=== PATIENT | male | born 1955 | race Caucasian/White ===

== ENCOUNTER 2016-03-16 05:40 | Emergency (ER) | payer OTHER ==
[~2016-03-16 05:40] MED LIST: ABIL5TAB5 PO; ADVI200T PO; ALBU17IN2 INH; ASPI1TAB PO; CYCL10TA PO; CYMB1CAP4 PO; FLUO10CA8 PO; FOLI800T PO; HYDR-3713 PO; HYDR25TAB PO; K-TA10TA2 PO; LISI-538 PO; METF1000 PO; PRAV40TA2 PO; PRIL20CA9 PO; PROZ20CA11 PO; SYMB16INH INH; TRAZ150T14 PO; VITA200016 PO; VITMTA PO; vitamin D PO
[2016-03-16] MEDS ORDERED: ONDANSETRON 4MG/2ML VIAL (J2405) As Ordered ONE (06:06)
[2016-03-16] MEDS ORDERED: MORPHINE 4 MG/ML 1ML SYRINGE As Ordered ONE ×2 (06:06→06:51)
[2016-03-16 06:21] LABS: BASO % 0.6 % (0.0-1.0); EOS # 0.4 K/mm3 (0.0-0.50); LARGE UNSTAINED CELL # 0.2 K/mm3 (0.0-0.4); LARGE UNSTAINED CELL % 2.3 % (0.0-4.0); LYMPH # 1.7 K/mm3 (1.5-4.5); LYMPH % 22.1 % (24.0-44.0); MEAN CORPUSCULAR HEMOGLOBIN 30.1 pg (27.0-33.0); MEAN CORPUSCULAR HGB CONC 34.3 g/dl (32.0-36.5); MEAN CORPUSCULAR VOLUME 87.7 fl (80.0-96.0); MONO # 0.3 K/mm3 (0.0-0.8); MONO % 4.5 % (0.0-5.0); NEUTROPHILS % 65.5 % (36.0-66.0); PLATELET COUNT, AUTOMATED 200 k/mm3 (150-450); RED CELL DISTRIBUTION WIDTH 13.5 % (11.5-14.5); WHITE BLOOD COUNT 7.7 K/mm3 (4.0-10.0)
[2016-03-16 06:32] LABS: ALBUMIN 3.5 GM/DL (3.2-5.2); ALBUMIN/GLOBULIN RATIO 1.06 (1.00-1.93); ALKALINE PHOSPHATASE 85 U/L (45-117); ALT/SGPT 53 U/L (12-78); AMYLASE 39 U/L (25-115); ANION GAP 11 MEQ/L (8-16); AST/SGOT 33 U/L (15-37); BILIRUBIN,DIRECT < 0.1 MG/DL (0.0-0.2); BILIRUBIN,TOTAL 0.2 MG/DL (0.2-1.0); BLOOD UREA NITROGEN 17 MG/DL (7-18); CALCIUM LEVEL 8.5 MG/DL (8.5-10.1); CARBON DIOXIDE LEVEL 25 MEQ/L (21-32); CHLORIDE LEVEL 109 MEQ/L (98-107); CREATININE FOR GFR 0.91 MG/DL (0.70-1.30); GLOMERULAR FILTRATION RATE > 60.0 (>56); GLUCOSE, FASTING 167 MG/DL (70-105); POTASSIUM SERUM 3.7 MEQ/L (3.5-5.1); SODIUM LEVEL 145 MEQ/L (136-145); TOTAL PROTEIN 6.8 GM/DL (6.4-8.2)
[2016-03-16] MEDS ORDERED: ISOVUE-370 76% 100ML VIAL (Q9967) As Ordered ONE (06:39)
--- NOTE | 2016-03-16 07:20 | REPUSA ---
CLINICAL HISTORY: Abdominal pain. TECHNIQUE: Multiple axial, sagittal and coronal CT images were obtained through the abdomen and pelvi s after administration of intravenous contrast material. COMMENTS: The liver is moderately enlarged with decreased attenuation without mass or defect. There is no intra or extrahepatic biliary ductal dilatation. The spleen is normal. The gallbladder is diffusely thickened. The pancreas is of normal contour and attenuation characteristics. There is no evidence of adrenal mass. Adrenal mass. Both kidneys demonstrate prompt and equal nephrograms. The kidneys are normal in size, shape and conf iguration. There is no evidence of renal or ureteral mass. No renal or ureteral calculi are identified. There is no hydroureter or hydronephrosis. No evidence for appendicitis. There is no bowel wall thickening. No evidence for small or large ivis l obstruction. There is no evidence of abdominal ascites or lymphadenopathy. There is no evidence of intrinsic or extrinsic bladder mass. There is no pelvic ascites or lymphadeno crista. Mild prostatomegaly. Mildly thickened bladder. Images of the lung bases show no evidence of pleural or parenchymal mass. There are no pleural effusi ons. The bony structures are free of lytic or blastic lesions. Multilevel degenerative changes are seen in volving the thoracolumbar spine. Scattered calcifications are seen involving the aorta and major bran ches compatible with atherosclerosis. IMPRESSION: Diffuse thickening of the wall of the gallbladder suspicious for mild changes of acute cholecystitis. Findings were not present on the prior exam on 01/01/2016. Hepatomegaly with fatty liver infiltration. Gastroparesis. Mild large bowel fecal stasis. Thank you for your kind referral of this patient.
[2016-03-16 10:28] LABS: BASO % 0.5 % (0.0-1.0); EOS # 0.2 K/mm3 (0.0-0.50); EOS % 2.2 % (0.0-3.0); LARGE UNSTAINED CELL # 0.1 K/mm3 (0.0-0.4); LARGE UNSTAINED CELL % 1.6 % (0.0-4.0); LYMPH # 1.3 K/mm3 (1.5-4.5); LYMPH % 15.9 % (24.0-44.0); MEAN CORPUSCULAR HEMOGLOBIN 29.7 pg (27.0-33.0); MEAN CORPUSCULAR HGB CONC 33.9 g/dl (32.0-36.5); MEAN CORPUSCULAR VOLUME 87.6 fl (80.0-96.0); MONO # 0.4 K/mm3 (0.0-0.8); MONO % 5.1 % (0.0-5.0); NEUTROPHILS % 74.6 % (36.0-66.0); PLATELET COUNT, AUTOMATED 172 k/mm3 (150-450); RED CELL DISTRIBUTION WIDTH 13.6 % (11.5-14.5)
--- NOTE | 2016-03-16 10:55 | ECGEPIP ---
Stationary ECG Study [facility] - ED Test Date: 2016-03-16 Pat Name: LOBITO FORMAN Department: Room: - Gender: M [employer] Truck Driver: micaela : 1955 Requested By: DREA Abreu Order Number: [id number] Reading MD: Rosie Flores Measurements Intervals [place] Rate: 69 P: 0 MO: 183 QRS: -21 QRSD: 109 T: 25 QT: 348 QTc: 375 Interpretive Statements SINUS RHYTHM BORDERLINE LEFT AXIS DEVIATION LOW QRS VOLTAGE IN PRECORDIAL LEADS NONSPECIFIC T-WAVE ABNORMALITY DELAYED R PROGESSION SIMILAR 01/01/16 Electronically Signed On 03-16-2016 10:55:10 EST by Rosie Flores
--- NOTE | 2016-03-16 11:04 | REP ---
Abdominal upper quadrant ultrasound: The visualized portion of the pancreatic head is unremarkable. There is biliary gravel in the gallbladder neck. There is a negative Preciado's sign to transducer pressure. There is minimal gallbladder wall thickening measuring 3 mm. There is no intrahepatic biliary duct dilatation. The common duct measures 7 mm, upper normal. The hepatic parenchyma is acoustically dense compatible with hepato steatosis or diffuse hepatic cellular disease. There is no ascites. There is no hydronephrosis of the right kidney and no calculus, cyst or mass in the right kidney. Right kidney is normal size, 11.1 cm craniocaudad length. Impression: Biliary gravel in the gallbladder. No evidence of acute cholecystitis. No biliary duct dilatation. No ascites. Hepato steatosis. Signed by Ubaldo Christine MD 03/16/2016 08:39 A
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
[2016-03-17] MEDS ORDERED: TERA1CAP46 PO (00:06)
[2016-03-17] MEDS ORDERED: FINA5TAB2 PO (00:06)
[2016-03-17] MEDS ORDERED: PRAV40TA2 PO (00:06)
[2016-03-17] MEDS ORDERED: BACL10TA2 PO (00:09)
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
== END 2016-03-16 11:07 | disposition home or self-care (01) ==
LOC: M ED 05:40
DX: K31.84 Gastroparesis (principal); K80.20 Calculus of gallbladder without cholecystitis without obstruction; K59.00 Constipation, unspecified; J45.909 Unspecified asthma, uncomplicated; J44.9 Chronic obstructive pulmonary disease, unspecified; E11.9 Type 2 diabetes mellitus without complications; I10 Essential (primary) hypertension; G47.33 Obstructive sleep apnea (adult) (pediatric); Z87.891 Personal history of nicotine dependence; Z79.82 Long term (current) use of aspirin; Z79.84 Long term (current) use of oral hypoglycemic drugs; Z79.899 Other long term (current) drug therapy

== ENCOUNTER 2016-03-16 20:04 | Observation (INO) | payer OTHER ==
[~2016-03-16] VITALS: Ht 172.7 cm; Wt 134.7 kg
[2016-03-16 20:55] LABS: BASO % 0.4 % (0.0-1.0); EOS # 0.2 K/mm3 (0.0-0.50); EOS % 1.7 % (0.0-3.0); LARGE UNSTAINED CELL # 0.1 K/mm3 (0.0-0.4); LARGE UNSTAINED CELL % 0.7 % (0.0-4.0); LYMPH # 1.5 K/mm3 (1.5-4.5); LYMPH % 11.4 % (24.0-44.0); MEAN CORPUSCULAR HEMOGLOBIN 30.1 pg (27.0-33.0); MEAN CORPUSCULAR HGB CONC 34.6 g/dl (32.0-36.5); MEAN CORPUSCULAR VOLUME 86.9 fl (80.0-96.0); MONO # 0.7 K/mm3 (0.0-0.8); MONO % 6.1 % (0.0-5.0); NEUTROPHILS # 9.7 K/mm3 (1.8-7.7); NEUTROPHILS % 79.7 % (36.0-66.0); PLATELET COUNT, AUTOMATED 185 k/mm3 (150-450); RED CELL DISTRIBUTION WIDTH 13.6 % (11.5-14.5); WHITE BLOOD COUNT 12.2 K/mm3 (4.0-10.0)
[2016-03-16] MEDS ORDERED: traZODone 50 MG TAB PO SCH (21:00)
[2016-03-16 21:35] LABS: ALBUMIN 3.7 GM/DL (3.2-5.2); ALBUMIN/GLOBULIN RATIO 1.16 (1.00-1.93); ALKALINE PHOSPHATASE 61 U/L (45-117); ALT/SGPT 58 U/L (12-78); AMYLASE 35 U/L (25-115); ANION GAP 10 MEQ/L (8-16); AST/SGOT 32 U/L (15-37); BILIRUBIN,DIRECT 0.1 MG/DL (0.0-0.2); BILIRUBIN,TOTAL 0.5 MG/DL (0.2-1.0); BLOOD UREA NITROGEN 13 MG/DL (7-18); CALCIUM LEVEL 8.6 MG/DL (8.5-10.1); CARBON DIOXIDE LEVEL 27 MEQ/L (21-32); CHLORIDE LEVEL 106 MEQ/L (98-107); CREATININE FOR GFR 0.91 MG/DL (0.70-1.30); GLOMERULAR FILTRATION RATE > 60.0 (>56); GLUCOSE, FASTING 137 MG/DL (70-105); POTASSIUM SERUM 4.1 MEQ/L (3.5-5.1); SODIUM LEVEL 143 MEQ/L (136-145); TOTAL PROTEIN 6.9 GM/DL (6.4-8.2)
--- NOTE | 2016-03-16 22:30 | REPUSA ---
CT of the abdomen and pelvis without contrast Clinical statement: Pain. Technique: Multiple axial CT images were obtained from the base of the lungs to the floor of the pelv is utilizing 5 mm axial slices without administration of contrast. Coronal and sagittal reconstructio ns were also obtained. Comparison: 03/16/2016. Findings: Chest: The visualized lung bases are clear. Abdomen: The pericholecystic inflammation or gallbladder wall thickening is again noted and is grossl y stable. The kidneys are normal in size bilaterally. There is no evidence of hydronephrosis or nephr olithiasis. The liver, spleen, pancreas, and adrenal glands are unremarkable. The aorta demonstrates normal caliber and contour. There is no abdominal lymphadenopathy or ascites. Pelvis: The bowel is unremarkable, with no obstructive or inflammatory changes. The appendix is raffi l. The urinary bladder is within normal limits. There is no pelvic lymphadenopathy or ascites. The ot her pelvic structures appear unremarkable. Bones: There are no suspicious osseous abnormalities seen. Impression: 1. Pericholecystic inflammation or gallbladder wall thickening is again appreciated, highly suspiciou s for acute cholecystitis. 2. The other CT findings are grossly stable.
[2016-03-17] MEDS ORDERED: TERA1CAP46 PO (00:06)
[2016-03-17] MEDS ORDERED: PRAV40TA2 PO (00:06)
[2016-03-17] MEDS ORDERED: FINA5TAB2 PO (00:06)
[2016-03-17] MEDS ORDERED: BACL10TA2 PO (00:09)
[2016-03-17] MEDS ORDERED: MORPHINE 2 MG/ML 1ML SYRINGE As Ordered ONE (00:39)
[2016-03-17 01:20] VITALS: BP 191/89
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
[2016-03-17] MEDS ORDERED: ONDANSETRON 4MG/2ML VIAL (J2405) IV PRN (02:15)
[2016-03-17] MEDS ORDERED: MORPHINE 2 MG/ML 1ML SYRINGE IV PRN (02:15)
[2016-03-17] MEDS ORDERED: LR 1,000 ML IV SCH (02:15)
[2016-03-17] MEDS: PIPERACILLIN/TAZOBACTAM SOD 3.375 GM in D5W MINI-BAG PLUS 50 ML IV SCH ×2 (02:54→08:00)
[2016-03-17 05:44] VITALS: BP 154/80
[2016-03-17 06:00] VITALS: BP 154/72
[2016-03-17] MEDS: SUCRALFATE 1 GM TAB PO SCH ×2 (07:30→12:21)
[2016-03-17] MEDS ORDERED: metFORMIN (GLUCOPHAGE) 1000 MG TABLET PO SCH (08:00)
[2016-03-17] MEDS ORDERED: ASPIRIN 81 MG ENTERIC TAB PO SCH (09:00)
[2016-03-17] MEDS ORDERED: SENOKOT S TAB PO SCH (09:00)
[2016-03-17] MEDS ORDERED: FLUoxetine 20 MG CAP PO SCH (09:00)
[2016-03-17] MEDS ORDERED: BISACODYL 10 MG SUPP PR PRN (09:00)
[2016-03-17] MEDS ORDERED: PRAVASTATIN 20 MG TAB PO SCH (09:00)
[2016-03-17] MEDS ORDERED: MOM 30ML SUSPENSION UDC PO PRN (09:00)
[2016-03-17] MEDS ORDERED: SYMBICORT 160/4.5MCG INHALER 6GM INH SCH (09:00)
[2016-03-17] MEDS ORDERED: POTASSIUM CHLORIDE 10 MEQ SR TABLET PO SCH (09:00)
[2016-03-17] MEDS ORDERED: KETOROLAC 30 MG/ML VIAL (J1885) IV PRN (09:00)
[2016-03-17] MEDS ORDERED: LISINOPRIL 20 MG TAB PO SCH (09:00)
[2016-03-17] MEDS ORDERED: ACETAMINOPHEN TAB 650MG DOSE (2X325MG) PO PRN (09:00)
[2016-03-17] MEDS ORDERED: hydroCHLOROthiazide 25 MG TAB PO SCH (09:00)
[2016-03-17] MEDS ORDERED: FINASTERIDE 5 MG TAB PO SCH (09:00)
[2016-03-17] MEDS ORDERED: BACLOFEN 10 MG TAB PO SCH (09:00)
[2016-03-17] MEDS ORDERED: PANTOPRAZOLE 40MG TAB (PROTONIX) PO SCH (09:00)
[2016-03-17] MEDS ORDERED: TERAZOSIN 1 MG CAP PO SCH (09:00)
[2016-03-17 09:02] VITALS: BP 154/72
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
[2016-03-17 14:00] VITALS: BP 150/75
[2016-03-17] MEDS ORDERED: HEPARIN SOD (PORCINE) 5000 UNITS/ML VIAL SC SCH (14:00)
[2016-03-18] MEDS ORDERED: INFLUENZA QUADRIVALENT PF VACCINE 0.5ML SYRINGE/VIAL (90686) IM ONE (09:00)
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
== END 2016-03-17 14:40 | disposition home or self-care (01) ==
LOC: M ED 20:04 → M MS5PR 20:05 → UNDOADMIN 23:00 → M ED INP 23:00 → M MS5PR 03-17 01:20 → UNDODISIN 03-17 14:40
PROVIDERS: ADMIT Surgery; ATTEND Surgery
DX: R10.11 Right upper quadrant pain (principal); I10 Essential (primary) hypertension; J45.909 Unspecified asthma, uncomplicated; J44.9 Chronic obstructive pulmonary disease, unspecified; E11.9 Type 2 diabetes mellitus without complications; G47.30 Sleep apnea, unspecified; E55.9 Vitamin D deficiency, unspecified; M54.5 Low back pain; Z79.899 Other long term (current) drug therapy; Z79.82 Long term (current) use of aspirin; Z79.84 Long term (current) use of oral hypoglycemic drugs; Z79.51 Long term (current) use of inhaled steroids; Z87.891 Personal history of nicotine dependence

== ENCOUNTER 2017-06-06 16:40 | Emergency (ER) | payer OTHER ==
[2017-06-06 17:42] LABS: BASO # 0.1 10^3/uL (0.0-0.2); BASO % 0.5 % (0.0-1.0); EOS # 0.3 10^3/uL (0.0-0.50); EOS % 3.6 % (0.0-3.0); HEMATOCRIT 42.3 % (42.0-52.0); HEMOGLOBIN 14.4 g/dl (13.5-17.5); IMMATURE GRANULOCYTE % 0.3 % (0-3.0); LYMPH # 2.1 10^3/uL (1.5-4.5); LYMPH % 22.6 % (24.0-44.0); MEAN CORPUSCULAR VOLUME 85.3 fl (80.0-96.0); MONO # 0.6 10^3/uL (0.0-0.8); MONO % 5.9 % (0.0-5.0); NEUTROPHILS # 6.3 10^3/uL (1.8-7.7); NEUTROPHILS % 67.1 % (36.0-66.0); PLATELET COUNT, AUTOMATED 191 10^3/uL (150-450); RED BLOOD COUNT 4.96 10^6/uL (4.30-6.10); RED CELL DISTRIBUTION WIDTH 13.5 % (11.5-14.5); WHITE BLOOD COUNT 9.3 10^3/uL (4.0-10.0)
[2017-06-06 18:03] LABS: ALBUMIN/GLOBULIN RATIO 1.05 (1.00-1.93); ALKALINE PHOSPHATASE 68 U/L (45-117); ALT/SGPT 25 U/L (12-78); ANION GAP 8 MEQ/L (8-16); AST/SGOT 19 U/L (7-37); BILIRUBIN,DIRECT 0.2 MG/DL (0.0-0.2); BILIRUBIN,TOTAL 0.6 MG/DL (0.2-1.0); BLOOD UREA NITROGEN 30 MG/DL (7-18); CALCIUM LEVEL 9.3 MG/DL (8.8-10.2); CARBON DIOXIDE LEVEL 27 MEQ/L (21-32); CHLORIDE LEVEL 106 MEQ/L (98-107); GLOMERULAR FILTRATION RATE > 60.0 (>49); GLUCOSE, FASTING 156 MG/DL (70-100); LIPASE 103 U/L (73-393); POTASSIUM SERUM 3.7 MEQ/L (3.5-5.1); SODIUM LEVEL 141 MEQ/L (136-145); TOTAL PROTEIN 7.8 GM/DL (6.4-8.2)
[2017-06-06] MEDS ORDERED: NORCO 5/325MG TABLET (BULK FOR ED) PO (18:15)
== END 2017-06-06 18:59 | disposition home or self-care (01) ==
LOC: M ED 16:40
DX: K80.50 Calculus of bile duct without cholangitis or cholecystitis without obstruction (principal); E11.9 Type 2 diabetes mellitus without complications; I10 Essential (primary) hypertension; J44.9 Chronic obstructive pulmonary disease, unspecified; E55.9 Vitamin D deficiency, unspecified; G47.33 Obstructive sleep apnea (adult) (pediatric); Z87.19 Personal history of other diseases of the digestive system; Z79.899 Other long term (current) drug therapy; Z79.84 Long term (current) use of oral hypoglycemic drugs; Z79.82 Long term (current) use of aspirin; Z87.891 Personal history of nicotine dependence
CPT/HCPCS: 83690

== ENCOUNTER 2017-06-29 19:02 | Emergency (ER) | payer OTHER ==
[2017-06-29] MEDS: diazePAM 2 MG TAB PO (20:33)
[2017-06-29] MEDS: KETOROLAC 30 MG/ML VIAL (J1885) IV (20:33)
[2017-06-29 21:04] LABS: ANION GAP 6 MEQ/L (8-16); BLOOD UREA NITROGEN 17 MG/DL (7-18); CALCIUM LEVEL 8.6 MG/DL (8.8-10.2); CARBON DIOXIDE LEVEL 28 MEQ/L (21-32); CHLORIDE LEVEL 110 MEQ/L (98-107); CREATININE FOR GFR 0.87 MG/DL (0.70-1.30); GLOMERULAR FILTRATION RATE > 60.0 (>49); GLUCOSE, FASTING 89 MG/DL (70-100); POTASSIUM SERUM 4.2 MEQ/L (3.5-5.1); SODIUM LEVEL 144 MEQ/L (136-145)
[2017-06-29] MEDS: PERCOCET 5MG/325MG TAB PO (21:45)
== END 2017-06-29 21:50 | disposition home or self-care (01) ==
LOC: M ED 19:02
DX: M54.9 Dorsalgia, unspecified (principal); M51.36 Other intervertebral disc degeneration, lumbar region; M51.37 Other intervertebral disc degeneration, lumbosacral region; M51.34 Other intervertebral disc degeneration, thoracic region; M25.78 Osteophyte, vertebrae; E11.9 Type 2 diabetes mellitus without complications; I10 Essential (primary) hypertension; F32.9 Major depressive disorder, single episode, unspecified; J45.909 Unspecified asthma, uncomplicated; J44.9 Chronic obstructive pulmonary disease, unspecified; G47.30 Sleep apnea, unspecified; R06.00 Dyspnea, unspecified; Z87.891 Personal history of nicotine dependence
CPT/HCPCS: J1885

== ENCOUNTER 2017-10-26 20:23 | Emergency (ER) | payer OTHER ==
[2017-10-26] MEDS: ACETAMINOPHEN 325 MG TAB PO (21:10)
== END 2017-10-26 22:55 | disposition home or self-care (01) ==
LOC: M ED 20:23
DX: M17.11 Unilateral primary osteoarthritis, right knee (principal); M76.51 Patellar tendinitis, right knee; E11.9 Type 2 diabetes mellitus without complications; I10 Essential (primary) hypertension; J44.9 Chronic obstructive pulmonary disease, unspecified; E78.5 Hyperlipidemia, unspecified; Z79.899 Other long term (current) drug therapy; Z79.82 Long term (current) use of aspirin; Z79.84 Long term (current) use of oral hypoglycemic drugs; Z87.891 Personal history of nicotine dependence
CPT/HCPCS: 73564

== ENCOUNTER 2020-07-02 19:23 | Inpatient (IN) | payer MEDICARE, OTHER ==
[~2020-07-02] VITALS: Ht 172.7 cm; Wt 105.0 kg
[~2020-07-02 19:23] MED LIST changes: +ABIL1TAB11 PO; -ABIL5TAB5 PO; +ACET650T61 PO; +ALPR0.5T3 PO; +ARIP1TAB6; -ASPI1TAB PO; +ASPI81TA26 PO; +BACL10TA2 PO; +CAPS0.022 TOP; +CIPR-249 PO; +CYCL-707 PO; -CYCL10TA PO; +DOXE10CA; +FINA5TAB2 PO; +FLAG500T PO; +FLUO10CA16 PO; -FLUO10CA8 PO; +FOLI0.8T3 PO; -FOLI800T PO; +HYDR-2541 PO; +HYDR-3490 PO; -HYDR25TAB PO; -LISI-538 PO; +LISI20TA33 PO; +METF-877 PO; -METF1000 PO; +METF10004 PO; +NAPR-885 PO; +PERC5TAB12 PO; +TERA1CAP3 PO; -TRAZ150T14 PO; +TRAZ1TAB14 PO
[2020-07-02] MEDS ORDERED: BACL10TA2 PO (19:49)
[2020-07-02] MEDS ORDERED: FURO20TA2 PO (19:49)
[2020-07-02 20:27] LABS: HEMATOCRIT 40.8 % (42.0-52.0); HEMOGLOBIN 13.7 g/dl (13.5-17.5); MEAN CORPUSCULAR HEMOGLOBIN 30.8 pg (27.0-33.0); MEAN CORPUSCULAR HGB CONC 33.6 g/dl (32.0-36.5); MEAN CORPUSCULAR VOLUME 91.7 fl (80.0-96.0); PLATELET COUNT, AUTOMATED 165 10^3/uL (150-450); RED BLOOD COUNT 4.45 10^6/uL (4.30-6.10); WHITE BLOOD COUNT 8.6 10^3/uL (4.0-10.0)
[2020-07-02 20:48] LABS: AMPHETAMINES LEVEL URINE NEGATIVE (NEGATIVE); BARBITURATES URINE NEGATIVE (NEGATIVE); BENZODIAZEPINES URINE NEGATIVE (NEGATIVE); CANNABINOIDS URINE NEGATIVE (NEGATIVE); COCAINE METABOLITE URINE NEGATIVE (NEGATIVE); METHADONE URINE NEGATIVE (NEGATIVE); OPIATES URINE NEGATIVE (NEGATIVE); PHENCYCLIDINE URINE NEGATIVE (NEGATIVE)
[2020-07-02] MEDS: HumaLOG INSULIN (NovoLOG) PER UNIT SC SCH (21:00)
[2020-07-02 21:03] LABS: ACETAMINOPHEN LEVEL < 2.0 UG/ML (10.0-30.0); ALBUMIN 3.9 GM/DL (3.2-5.2); ALT/SGPT 24 U/L (12-78); BILIRUBIN,DIRECT 0.2 MG/DL (0.0-0.2); BILIRUBIN,TOTAL 0.8 MG/DL (0.2-1.0); BLOOD UREA NITROGEN 33 MG/DL (7-18); CALCIUM LEVEL 8.6 MG/DL (8.8-10.2); CARBON DIOXIDE LEVEL 24 MEQ/L (21-32); CHLORIDE LEVEL 111 MEQ/L (98-107); CREATININE FOR GFR 1.74 MG/DL (0.70-1.30); ETHYL ALCOHOL (ETHANOL) < 0.003 % (0.000-0.010); GLOMERULAR FILTRATION RATE 42.4 (>49); GLUCOSE, FASTING 104 MG/DL (70-100); SALICYLATE LEVEL < 1.7 MG/DL (5.0-30.0); SODIUM LEVEL 142 MEQ/L (136-145); THYROID STIMULATING HORMONE 0.922 uIU/ML (0.358-3.740); TOTAL PROTEIN 6.7 GM/DL (6.4-8.2)
[2020-07-02] MEDS ORDERED: DEXTROSE 50% 50 ML SYRINGE IV PRN (21:30)
[2020-07-02] MEDS ORDERED: MAALOX 30 ML SUSP *UDC PO PRN (21:30)
[2020-07-02] MEDS ORDERED: MOM 30ML SUSPENSION UDC PO PRN (21:30)
[2020-07-02] MEDS ORDERED: GLUCOSE 4GM CHEW TABLET PO PRN (21:30)
[2020-07-02] MEDS ORDERED: GLUCAGON INJ 1MG VIAL SC PRN (21:30)
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
[2020-07-02] MEDS ORDERED: NS 1,000 ML IV SCH (21:35)
[2020-07-02 21:50] LABS: CPK CREATINE PHOSPHOKINASE 258 U/L (39-308); URIC ACID 8.6 MG/DL (3.5-7.2)
[2020-07-02 22:00] LABS: APPEARANCE, URINE CLEAR (CLEAR); BACTERIA, URINE AUTO NEGATIVE (NEGATIVE); BILIRUBIN, URINE AUTO NEGATIVE (NEGATIVE); BLOOD, URINE BLOOD NEGATIVE (NEGATIVE); COLOR, URINE YELLOW (YELLOW); GLUCOSE, URINE (UA) AUTO NEGATIVE (NEGATIVE); KETONE, URINE AUTO NEGATIVE (NEGATIVE); LEUKOCYTE ESTERASE, URINE AUTO NEGATIVE (NEGATIVE); MUCUS, URINE SMALL (NEGATIVE); NITRITE, URINE AUTO NEGATIVE (NEGATIVE); PROTEIN, URINE AUTO NEGATIVE (NEGATIVE); RBC, URINE AUTO 0 /HPF (0-3); SPECIFIC GRAVITY URINE AUTO 1.014 (1.002-1.035); SQUAMOUS EPITHELIAL CELL UR AU 0 /HPF (0-6); UROBILINOGEN, URINE AUTO 0.2 mg/dL (0.0-2.0); WBC, URINE AUTO 1 /HPF (0-3)
[2020-07-02] MEDS ORDERED: POTA1TAB14 PO (22:06)
[2020-07-02] MEDS ORDERED: PRAV80TA2 PO (22:06)
[2020-07-02 22:12] LABS: POTASSIUM RANDOM URINE 29.7 MEQ/L
[2020-07-02] MEDS: NS 1,000 ML IV SCH (22:32)
[2020-07-02 23:17] LABS: RSV AMPLIFICATION NEGATIVE (NEGATIVE)
--- NOTE | 2020-07-02 23:26 | REPVR ---
PROCEDURE INFORMATION: Exam: US Retroperitoneal Limited, Kidneys Exam date and time: 07/02/2020 10:08 PM Age: 65 years old Clinical indication: Other: Malcolm TECHNIQUE: Imaging protocol: Real-time ultrasound of the retroperitoneum with image documentation. Examination was focused on the kidneys. COMPARISON: CT ABD PELVIS W/O CONTRAST 03/16/2016 10:06 PM FINDINGS: Right kidney: The right kidney measures 11.8 cm in length by 5.5 cm in thickness. The renal cortex measures 1.7 cm in thickness and appearing within the range of normal. Left kidney: The left kidney measures 12.5 cm in length by 5.9 cm in thickness. The left renal cortex measures 1.8 cm in thickness there is no evidence of hydronephrosis of the left kidney. There is no evidence of hydronephrosis left collecting system. Mild prominence left renal pelvis. Bladder: Normal appearing urinary bladder. Other findings: There is no evidence of hydronephrosis. The prostate measures 4.4 cm x 4.7 cm mildly enlarged. IMPRESSION: Normal appearing renal ultrasound. Electronically signed by: Doni Negrno On 07/02/2020 23:26:05 PM
[2020-07-03 00:22] VITALS: BP 138/77
[2020-07-03] MEDS: NS 1,000 ML IV SCH ×2 (00:40→18:17)
[2020-07-03] MEDS: BACLOFEN 10 MG TAB PO SCH ×4 (00:42→21:11)
[2020-07-03] MEDS: PRAVASTATIN 20 MG TAB PO SCH ×2 (00:42→21:11)
[2020-07-03] MEDS: traZODone 50 MG TAB PO SCH ×2 (00:42→21:10)
[2020-07-03] MEDS: POTASSIUM CHLORIDE 10 MEQ SR TABLET PO SCH ×3 (00:43→21:11)
[2020-07-03] MEDS: ACETAMINOPHEN TAB 650MG DOSE (2X325MG) PO PRN ×2 (00:43→21:12)
[2020-07-03] MEDS: HEPARIN SOD (PORCINE) 5000UNITS/ML 1ML VIAL/SYRINGE SC SCH ×3 (05:14→21:11)
[2020-07-03 05:48] VITALS: BP 122/70
[2020-07-03 07:00] LABS: HEMATOCRIT 37.6 % (42.0-52.0); HEMOGLOBIN 12.4 g/dl (13.5-17.5); MEAN CORPUSCULAR HEMOGLOBIN 30.4 pg (27.0-33.0); MEAN CORPUSCULAR VOLUME 92.2 fl (80.0-96.0); PLATELET COUNT, AUTOMATED 143 10^3/uL (150-450); RED BLOOD COUNT 4.08 10^6/uL (4.30-6.10); WHITE BLOOD COUNT 6.6 10^3/uL (4.0-10.0)
[2020-07-03 07:18] LABS: HEMOGLOBIN A1c 5.3 %
[2020-07-03 07:19] LABS: BLOOD UREA NITROGEN 25 MG/DL (7-18); CALCIUM LEVEL 8.1 MG/DL (8.8-10.2); CARBON DIOXIDE LEVEL 23 MEQ/L (21-32); CHLORIDE LEVEL 114 MEQ/L (98-107); CREATININE FOR GFR 1.11 MG/DL (0.70-1.30); GLOMERULAR FILTRATION RATE > 60.0 (>49); GLUCOSE, FASTING 85 MG/DL (70-100); POTASSIUM SERUM 4.1 MEQ/L (3.5-5.1); SODIUM LEVEL 141 MEQ/L (136-145)
[2020-07-03] MEDS: HumaLOG INSULIN (NovoLOG) PER UNIT SC SCH ×4 (07:30→21:00)
[2020-07-03] MEDS: SYMBICORT 160/4.5MCG INHALER 6GM INH SCH ×3 (07:35→20:06)
[2020-07-03] MEDS: FLUoxetine 20 MG CAP PO SCH (09:25)
[2020-07-03] MEDS: ASPIRIN 81MG ENTERIC TABLET PO SCH (09:26)
--- NOTE | 2020-07-03 09:49 | IPNPDOC ---
Text Note Date of Service The patient was seen on 07/03/20. NOTE Subjective: Patient is a 65-year-old male who presented to the emergency room after reporting suicidal ideation. He reported that he wanted to jump off a bridge and instead he called the police who brought him to the emergency room. Upon arrival to emergency room, patient's lab work had revealed an elevation of his creatinine from baseline and he was admitted to hospital service for further evaluation and treatment. Patient was seen and examined at the bedside. Patient denies any chest pain, shortness breath, palpitations, nausea, vomiting, abdominal pain or diarrhea. Denies any urinary discomfort. Objective: Vitals (See below) General: Lying in bed, no acute distress, comfortable, AAOx3 HEENT: NC, AT CVS: +S1S2 Lungs: Fair air entry b/l, -w/r/r Abdomen: Soft, ND, NT Extremities: - Edema, - Calf tenderness Imaging: Renal US 07/02: Normal appearing renal ultrasound. Assessment and plan: s/p MONIK - likely 2/2 pre-renal, possibly 2/2 intra-renal etiology - Renal function has improved and essentially at baseline - Imaging noted above - Will avoid nephrotoxic medications; lisinopril, metformin, Lasix, and naproxen have been stopped - c/w IV fluid hydration; will likely discontinue by this evening Suicidal ideation - History of depression - c/w Trazodone, Fluoxetine - Continue with suicidal precautions and bedside sitter - Will consult psychiatry this morning Chronic COPD - No evidence of exacerbation - Continue with inhaled therapy as ordered NIDDM2 - A1c 5.3 - c/w ISS DLP - c/w Pravastatin HTN - BP well controlled - s/p Lisinopril - c/w Amlodipine Chronic back pain - c/w Baclofen Obesity - BMI of 33.9 - Complicating medical care DVT prophylaxis - c/w Heparin Disposition: - Awaiting psychiatry input Sara BHARDWAJ I+O Sara BHARDWAJ I+O Laboratory Tests 07/02/20 19:53 07/03/20 06:39 Vital Signs Date Time Temp Pulse Resp B/P (MAP) Pulse Ox O2 Delivery O2 Flow Rate FiO2 07/03/20 09:27 62 117/61 07/03/20 05:48 97.8 20 97 Room Air I&O- Last 24 Hours up to 6 AM 07/03/20 06:00 Intake Total 1080 ml Output Total 400 ml Balance 680 ml HOLLAND NEVAREZ MD July 03, 2020 09:49
[2020-07-03 14:07] VITALS: BP 121/62
[2020-07-03 22:00] VITALS: BP 168/85
[2020-07-04] MEDS: HEPARIN SOD (PORCINE) 5000UNITS/ML 1ML VIAL/SYRINGE SC SCH ×2 (05:18→14:00)
[2020-07-04] MEDS ORDERED: PILL CUTTER 1 EACH XX PRN (05:35)
[2020-07-04 06:00] VITALS: BP 113/73
[2020-07-04] MEDS: HumaLOG INSULIN (NovoLOG) PER UNIT SC SCH ×3 (07:30→16:46)
[2020-07-04] MEDS: SYMBICORT 160/4.5MCG INHALER 6GM INH SCH (07:34)
[2020-07-04 07:39] LABS: BASO % 0.4 % (0.0-1.0); EOS # 0.4 10^3/uL (0.0-0.5); EOS % 5.5 % (0.0-3.0); HEMATOCRIT 40.5 % (42.0-52.0); HEMOGLOBIN 13.1 g/dl (13.5-17.5); LYMPH # 1.3 10^3/uL (1.5-5.0); LYMPH % 17.9 % (24.0-44.0); MEAN CORPUSCULAR HEMOGLOBIN 30.1 pg (27.0-33.0); MEAN CORPUSCULAR HGB CONC 32.3 g/dl (32.0-36.5); MEAN CORPUSCULAR VOLUME 93.1 fl (80.0-96.0); MONO # 0.6 10^3/uL (0.0-0.8); MONO % 7.7 % (2.0-8.0); NEUTROPHILS % 68.1 % (36.0-66.0); PLATELET COUNT, AUTOMATED 140 10^3/uL (150-450); RED BLOOD COUNT 4.35 10^6/uL (4.30-6.10); WHITE BLOOD COUNT 7.3 10^3/uL (4.0-10.0)
[2020-07-04 08:06] LABS: BLOOD UREA NITROGEN 18 MG/DL (7-18); CALCIUM LEVEL 8.2 MG/DL (8.8-10.2); CARBON DIOXIDE LEVEL 26 MEQ/L (21-32); CHLORIDE LEVEL 112 MEQ/L (98-107); GLOMERULAR FILTRATION RATE > 60.0 (>49); GLUCOSE, FASTING 92 MG/DL (70-100); MAGNESIUM LEVEL 1.8 MG/DL (1.8-2.4); POTASSIUM SERUM 4.1 MEQ/L (3.5-5.1); SODIUM LEVEL 142 MEQ/L (136-145)
[2020-07-04] MEDS ORDERED: AMLO25TA PO (08:28)
[2020-07-04 09:35] VITALS: BP 113/73
[2020-07-04] MEDS: ASPIRIN 81MG ENTERIC TABLET PO SCH (09:35)
[2020-07-04] MEDS: POTASSIUM CHLORIDE 10 MEQ SR TABLET PO SCH (09:35)
[2020-07-04] MEDS: BACLOFEN 10 MG TAB PO SCH ×2 (09:35→16:48)
[2020-07-04] MEDS: FLUoxetine 20 MG CAP PO SCH (09:35)
--- NOTE | 2020-07-04 10:08 | DS.PDOC ---
Discharge Summary General Date of Admission July 02, 2020 at 21:28 Date of Discharge 07/04/2020 Discharge Summary PROCEDURES PERFORMED DURING STAY: [None]. ADMITTING DIAGNOSES / DISCHARGE DIAGNOSES: s/p MONIK - likely 2/2 pre-renal, possibly 2/2 intra-renal etiology Suicidal ideation Chronic COPD Pre-DM2 DLP HTN Chronic back pain Obesity DVT prophylaxis COMPLICATIONS/CHIEF COMPLAINT: MONIK HISTORY OF PRESENT ILLNESS: Patient is a 65-year-old male who presented to the emergency room after reporting suicidal ideation. He reported that he wanted to jump off a bridge and instead he called the police who brought him to the emergency room. Upon arrival to emergency room, patient's lab work had revealed an elevation of his creatinine from baseline and he was admitted to hospital service for further evaluation and treatment. HOSPITAL COURSE: s/p MONIK - likely 2/2 pre-renal, possibly 2/2 intra-renal etiology - Creatinine has trended to baseline - Imaging noted above - Will avoid nephrotoxic medications; lisinopril, metformin, Lasix, and naproxen have been stopped - s/p IV fluid hydration Suicidal ideation - History of depression - Patient reported thoughts of suicide by jumping off of a bridge - c/w Trazodone, Fluoxetine - Continue with suicidal precautions and bedside sitter - Psychiatry on consult; will transition to the inpatient mental health unit today Chronic COPD - No evidence of exacerbation - c/w inhaled therapy as ordered Pre-DM2 - A1c 5.3 - c/w ISS; s/p Metformin DLP - c/w Pravastatin HTN - BP well controlled - s/p Lisinopril - c/w Amlodipine Chronic back pain - c/w Baclofen Obesity - BMI of 33.9 - Complicating medical care DVT prophylaxis - c/w Heparin DISCHARGE MEDICATIONS: Please see below. ALLERGIES: Please see below. PHYSICAL EXAMINATION ON DISCHARGE: Vitals (See below) General: Lying in bed, appears comfortable, AAOx3 HEENT: NC, AT CVS: +S1S2 Lungs: Fair air entry b/l, no evidence of wheezing, rales Abdomen: Soft, nondistended and nontender Extremities: Lower extremities do not any significant pitting edema, - Calf tenderness LABORATORY DATA: Please see below. IMAGING: Renal US 07/02: Normal appearing renal ultrasound. ACTIVITY: [As tolerated]. DISCHARGE PLAN: Follow-up with primary care provider within the next 7 days after discharge Follow-up with psychiatry on transfer Remain compliant with treatment plan and medications Return to the ER if any problems DISPOSITION: Inpatient mental health unit DISCHARGE CONDITION: [Stable]. TIME SPENT ON DISCHARGE: 35 minutes. Vital Signs/I&Os Vital Signs Date Time Temp Pulse Resp B/P (MAP) Pulse Ox O2 Delivery O2 Flow Rate FiO2 07/04/20 09:35 60 113/73 07/04/20 06:00 98.5 18 96 Room Air I&O- Last 24 Hours up to 6 AM 07/04/20 05:59 Intake Total 2200 ml Output Total 800 ml Balance 1400 ml Laboratory Data Labs 24H Laboratory Tests 2 07/03/20 11:37: Bedside Glucose (Misc Panel) 151H 07/03/20 16:41: Bedside Glucose (Misc Panel) 98 07/03/20 20:30: Bedside Glucose (Misc Panel) 146H 07/04/20 06:09: Bedside Glucose (Misc Panel) 98 07/04/20 07:20: Immature Granulocyte % (Auto) 0.4, Neutrophils (%) (Auto) 68.1H, Lymphocytes (%) (Auto) 17.9L, Monocytes (%) (Auto) 7.7, Eosinophils (%) (Auto) 5.5H, Basophils (%) (Auto) 0.4, Neutrophils # (Auto) 5.0, Lymphocytes # (Auto) 1.3L, Monocytes # (Auto) 0.6, Eosinophils # (Auto) 0.4, Basophils # (Auto) 0.0, Nucleated Red Blood Cells % (auto) 0.0, Anion Gap 4L, Glomerular Filtration Rate > 60.0, Calcium Level 8.2L, Magnesium Level 1.8 CBC/BMP Laboratory Tests 07/04/20 07:20 FSBS Laboratory Tests Test 07/03/20 11:37 07/03/20 16:41 07/03/20 20:30 07/04/20 06:09 Range/Units Bedside Glucose (Misc Panel) 151 98 146 98 80-115 MG/DL Discharge Medications Scheduled Acetaminophen (Tylenol Arthritis) 650 Mg Tab, 650 MG PO Q8H Amlodipine Besylate (Amlodipine Besylate) 2.5 Mg Tablet, 2.5 MG PO DAILY Aripiprazole (Abilify) 5 Mg Tab, 2.5 MG PO QHS, (Reported) Aspirin (Aspirin EC) 81 Mg Tab, 81 MG PO DAILY, (Reported) Baclofen (Baclofen) 10 Mg Tablet, 10 MG PO TID, (Reported) Budesonide/Formoterol (Symbicort 160-4.5 Mcg Inhaler) 60 Puff/Inhaler Aers, 2 PUFF INH BID for asthma, (Reported) Fluoxetine HCl (Prozac) 20 Mg Cap, 20 MG PO DAILY, (Reported) Pravastatin Sodium (Pravastatin Sodium) 80 Mg Tablet, 80 MG PO QHS, (Reported) Trazodone HCl (Trazodone HCl) 150 Mg Tab, 150 MG PO QHS, (Reported) Allergies Coded Allergies: No Known Allergies (Unverified , 01/21/19) HOLLAND NEVAREZ MD July 04, 2020 10:08
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
[2020-07-04 14:00] VITALS: BP 144/83
== END 2020-07-04 16:55 | DRG 683 ==
LOC: M ED 19:23 → M ED INP 21:28 → ENRESERV 23:37 → M MS5PR 07-03 00:01
PROVIDERS: ADMIT Internal Medicine; ATTEND Internal Medicine
DX: N17.9 Acute kidney failure, unspecified (principal); R45.851 Suicidal ideations; J44.9 Chronic obstructive pulmonary disease, unspecified; G47.33 Obstructive sleep apnea (adult) (pediatric); F32.9 Major depressive disorder, single episode, unspecified; E78.5 Hyperlipidemia, unspecified; R73.03 Prediabetes; I10 Essential (primary) hypertension; E66.9 Obesity, unspecified; M54.9 Dorsalgia, unspecified; Z90.49 Acquired absence of other specified parts of digestive tract; Z79.84 Long term (current) use of oral hypoglycemic drugs; Z79.82 Long term (current) use of aspirin; Z79.899 Other long term (current) drug therapy; Z68.33 Body mass index [BMI] 33.0-33.9, adult

== ENCOUNTER 2020-07-04 16:00 | Inpatient (IN) | payer MEDICARE, OTHER ==
[~2020-07-04 16:00] MED LIST changes: +AMLO25TA PO; +FURO20TA2 PO; +POTA1TAB14 PO; +PRAV80TA2 PO
[2020-07-04] MEDS ORDERED: ACETAMINOPHEN TAB 650MG DOSE (2X325MG) PO PRN (16:10)
[2020-07-04] MEDS ORDERED: MAALOX 30 ML SUSP *UDC PO PRN (16:10)
[2020-07-04] MEDS ORDERED: MOM 30ML SUSPENSION UDC PO PRN (16:10)
[2020-07-04 17:52] VITALS: BP 139/80
[2020-07-04] MEDS ORDERED: PILL CUTTER 1 EACH XX PRN (19:00)
[2020-07-04] MEDS: SYMBICORT 160/4.5MCG INHALER 6GM INH SCH (20:00)
[2020-07-04] MEDS: PRAVASTATIN 20 MG TAB PO SCH (20:16)
[2020-07-04] MEDS: BACLOFEN 10 MG TAB PO SCH (20:16)
[2020-07-04] MEDS: traZODone 50 MG TAB PO SCH (20:16)
[2020-07-04] MEDS ORDERED: metFORMIN (GLUCOPHAGE) 1000 MG TABLET PO ONE (23:00)
[2020-07-05 06:21] VITALS: BP 154/68
[2020-07-05] MEDS ORDERED: metFORMIN (GLUCOPHAGE) 1000 MG TABLET PO SCH ×2 (08:00→09:00)
[2020-07-05] MEDS: FLUoxetine 20 MG CAP PO SCH (08:33)
[2020-07-05] MEDS: ASPIRIN 81MG ENTERIC TABLET PO SCH (08:33)
[2020-07-05] MEDS: BACLOFEN 10 MG TAB PO SCH ×3 (08:34→21:13)
--- NOTE | 2020-07-05 10:19 | MHHPEPDOC ---
General Date Of Admission: July 04, 2020 Legal Status: 9.39 Chief Complaint Client was thinking about jumping off the bridge ". History of Present Illness HISTORY OF THE PRESENT ILLNESS: Patient is a 65 -year-old , male, who [was admitted on transfer from medical floor on 939 status due to suicidal ideas with a plan of jumping off a bridge. Patient reports that he had the problem with depression at times had the 1 previous inpatient stay 5 years ago and has been taking antidepressant medicine from his primary care physician. He has seen staying with his adopted sister and her family for the past 4 years, but lately he is having increasing conflict with them. He claims that they were accusing him of things that he didn't do, and has been arguing back and forth and was told to leave their house by the end of the month. Patient stated that he was feeling quite angry, upset and depressed and had the thoughts of suicide by jumping off a bridge, but before he did anything he called the police and was brought to the emergency. He was found to be quite dehydrated and had some acute kidney insufficiency and was admitted to medicine and was medically stabilized and transferred to [facility] health unit on 939 status. On examination, patient is cooperative and in good control and was able to give fairly organized history. He states that he can afford to find his own place but needs some help from the social work and is willing to cooperate. He is denying any active suicidal or plan or intent at this time, but stated that he feels unsafe and he needs support and discharge planning. He denies any substance abuse issues and denies any legal issues and denies any history of violence or any serious suicidal attempt]. Psychiatric Review of Systems Depression (2 or more weeks): depressed mood, feelings of worthlesness, appetite changes, suicidal thoughts Jillian (4 or more days of): denies Psychosis: denies PTSD: denies Anxiety: denies Past Psychiatric History Previous Psychiatric Diagnosis: [Had problem with depression for many years. No history of jillian and no history of psychosis]. Previous Psychiatric Admissions: [One prior admission 5 years ago]. Suicide Attempts: [Had several episodes of having suicidal thoughts but denies any history of attempts]. Psychiatric Follow-up: [Been taking Abilify and Prozac prescribed by primary care doctor]. Psychiatric medications: . Past Medical History Medical Problems COPD, hypertension, recent episode of acute renal insufficiency resolved. Type 2 diabetes Head Injury: No Seizures: No Hospitalizations: No Surgeries: No Family Medical/Psychiatric HX Medical Problems Noncontributory Psychiatric Disorders: No Addiction: No Suicide Attemps/Completions: No Addiction History denies Social History Childhood: [Unremarkable]. Abuse/Trauma:[Denies any history of being abused]. Current Living Situation: [Wasn't living with his adopted sister and her family for 4 years]. Education: [High school education, was in service for 22 years, worked as a "and on pension]. Employment: [, Retired from . On pension and SSI]. Social Support: [Was living with his adopted sister but was told to leave her house by the end of June]. Legal: Denies any legal issues. Marital: [, once and , has 4 grownup children, but very little contact has 1 brother, 3 sisters. Denies any major psychiatric history]. Mental Status Examination General Appearance: appears stated age Build: average Demeanor: average Eye Contact: average Activity: average Behavior: cooperative Speech: clear, spontaneous, normal volume Mood: depressed Mood Reports feeling angry and depressed, but is feeling better now. Denies any active suicidal thoughts Affect: appropriate Thought Process: logical/linear Thought Content (Delusions): none reported Thought Content (Other): none reported Thought Content (Aggressive): none reported Perception (Hallucinations): none reported Perception (Other): none reported Cognition (Impairment of): none reported Cognition(Intelligence Est.): average Oriented: Awake, Alert, Oriented times three Insight: fair Judgment: Fair Psychosis: Denies Diagnoses Major depression, recurrent, moderate, without psychosis A-FIB/CHADSVASC A-FIB History Current/History of A-Fib/PAF?: No Current PO Anticoag Therapy: No Age/Risk Factor Scoring CHADSVASC: CHADSVASC Response (Comments) Value Gender Risk Factor Male 0 Hx of CHF No 0 Hx of HTN Yes 1 Hx of Stroke/TIA/or VTE No 0 Hx of Diabetes Yes 1 Hx of Vascular Disease No 0 Total 2 Treatment Treatment ordered: NONE Assessment Long history of depression, but no history of jillian and has some underlying inadequate character features. Does not appear to be acutely suicidal, but needs help with discharge planning. Due to his unstable living situation and having no support system Initial Treatment Plan 1. Patient was admitted on a 9.39 status. 2. Complete history was obtained. 3. With patients permission, family will be contacted and database will be expanded. 4. Patients medication regimen will be reviewed and changed accordingly. 5. Patient will be provided with protected environment. 6. Patient will be treated with individual, group, and milieu therapies. 7. Patient will receive supportive psych-education. 8. Discharge planning will commence immediately. 9. Outpatient follow-up treatment will be strongly recommended. 10. The initial treatment plan will focus initially on: * Depression. * Risk for suicide. ESTIMATED LENGTH OF STAY: 3-5 DAYS. TIME SPENT COUNSELING AND COORDINATING INITIAL CARE: 45 minutes. Tobacco Cessation Screen If Patient is a Smoker Nonsmoker Complete/Results docum. (hemoglobin A1c is 5.3) Vital Signs Vital Signs Date Time Temp Pulse Resp B/P (MAP) Pulse Ox O2 Delivery O2 Flow Rate FiO2 07/05/20 08:34 72 148/73 07/05/20 06:21 97.5 18 98 Room Air Laboratory Data 24H Labs Laboratory Tests 2 07/05/20 06:27: Bedside Glucose (Misc Panel) 93 Medications Scheduled Acetaminophen (Tylenol Arthritis) 650 Mg Tab, 650 MG PO Q8H Amlodipine Besylate (Amlodipine Besylate) 2.5 Mg Tablet, 2.5 MG PO DAILY Aripiprazole (Abilify) 5 Mg Tab, 2.5 MG PO QHS, (Reported) Aspirin (Aspirin EC) 81 Mg Tab, 81 MG PO DAILY, (Reported) Baclofen (Baclofen) 10 Mg Tablet, 10 MG PO TID, (Reported) Budesonide/Formoterol (Symbicort 160-4.5 Mcg Inhaler) 60 Puff/Inhaler Aers, 2 PUFF INH BID for asthma, (Reported) Fluoxetine HCl (Prozac) 20 Mg Cap, 20 MG PO DAILY, (Reported) Pravastatin Sodium (Pravastatin Sodium) 80 Mg Tablet, 80 MG PO QHS, (Reported) Trazodone HCl (Trazodone HCl) 150 Mg Tab, 150 MG PO QHS, (Reported) Allergies Coded Allergies: No Known Allergies (Unverified , 01/21/19) SINAN BOSE M.D. July 05, 2020 10:19
[2020-07-05] MEDS: SYMBICORT 160/4.5MCG INHALER 6GM INH SCH ×2 (11:33→21:12)
[2020-07-05] MEDS ORDERED: ALBUTEROL 90 MCG/ACT 8GM HFA INHALER INH PRN (13:10)
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
[2020-07-05] MEDS: FUROSEMIDE 20 MG TAB PO SCH (13:26)
[2020-07-05 16:06] VITALS: BP 149/71
[2020-07-05] MEDS: metFORMIN (GLUCOPHAGE) 1000 MG TABLET PO SCH (17:14)
[2020-07-05] MEDS: traZODone 50 MG TAB PO SCH (21:13)
[2020-07-05] MEDS: PRAVASTATIN 20 MG TAB PO SCH (21:13)
[2020-07-06 06:50] VITALS: BP 142/63
[2020-07-06] MEDS: metFORMIN (GLUCOPHAGE) 1000 MG TABLET PO SCH ×2 (07:42→17:04)
[2020-07-06] MEDS: SYMBICORT 160/4.5MCG INHALER 6GM INH SCH ×2 (07:42→20:44)
[2020-07-06] MEDS: FLUoxetine 20 MG CAP PO SCH (08:33)
[2020-07-06] MEDS: ASPIRIN 81MG ENTERIC TABLET PO SCH (08:33)
[2020-07-06] MEDS: FUROSEMIDE 20 MG TAB PO SCH (08:33)
[2020-07-06] MEDS: BACLOFEN 10 MG TAB PO SCH ×3 (08:33→20:48)
--- NOTE | 2020-07-06 10:04 | MHIPNPDOC ---
[facility] Progress Note Progress Note DATE OF SERVICE: 07/06/20 The patient reports that he slept good last night and woke up feeling a little better. He has been getting his antidepressant medicine from his primary care ph ysician for the past several years and is to asking to continue the same amount. He does not have any new complaints and does not report any suicidal thoughts, but is very concerned about his housing issues because he has to leave his current residence by the end of the month. He is working with the psychosocial rehabilitation counselor and hopefully to have a place secured soon. HISTORY: . VITAL SIGNS: See below. NEW TEST RESULTS: . CURRENT MEDICATIONS: See below. MENTAL STATUS EXAMINATION: Patient is a 65-year old male, who is in no acute distress. Speech: Is rational, coherent. Language skills are good. Thought processes including: Relevant. Thought content: Denies any suicidal thoughts. Abstract reasoning, and computation: Failure. Description of associations: , Fair. Description of abnormal or psychotic thoughts: None. Judgment: , Fair. Insight: Fair]. Orientation: , Well oriented. Recent and remote memory: Good. Attention span and concentration: Good. Language: . Fund of knowledge: Average. Mood: Feeling better and not as depressed. Affect: Appropriate . DIAGNOSES: 1. . Major depression, recurrent, moderate 2. . 3. . ASSESSMENT:Showing some improvement and doesn't appear to be acutely suicidal MANAGEMENT PLAN: Assisted with the discharge plan. TIME SPENT: Porn minutes. Vital Signs Vital Signs Date Time Temp Pulse Resp B/P (MAP) Pulse Ox O2 Delivery O2 Flow Rate FiO2 07/06/20 09:53 71 142/68 07/06/20 06:50 97.6 71 99 Room Air Laboratory Data 24H Labs Laboratory Tests 2 07/05/20 17:00: Bedside Glucose (Misc Panel) 174H Current Medications Current Medications Medications (Trade) Dose Ordered Sig/Ry Route PRN Reason Start Time Stop Time Status Last Admin Dose Admin Acetaminophen (Tylenol Tab) 650 mg Q6HP PRN PO HEADACHE or DISCOMFORT 07/04/20 16:10 Al Hydrox/Mg Hydrox/Simethicone (Mylanta) 30 ml Q4HP PRN PO HEARTBURN/INDIGESTION 07/04/20 16:10 Albuterol Sulfate (Proventil, Ventolin Hfa) 2 puff Q4HP PRN INH SHORTNESS OF BREATH 07/05/20 13:10 Amlodipine Besylate (Norvasc) 2.5 mg DAILY PO 07/05/20 09:00 07/06/20 09:53 Aripiprazole (AbiLIFY) 2.5 mg QHS PO 07/04/20 21:00 07/05/20 21:13 Aspirin (Ecotrin) 81 mg DAILY PO 07/05/20 09:00 07/06/20 08:33 Baclofen (Lioresal) 10 mg TID PO 07/04/20 21:00 07/06/20 08:33 Budesonide/ Formoterol Fumarate (Symbicort 160/ 4.5mcg) 2 puff RBID INH 07/04/20 20:00 07/06/20 07:42 Fluoxetine HCl (PROzac) 20 mg DAILY PO 07/05/20 09:00 07/06/20 08:33 Furosemide (Lasix) 20 mg DAILY PO 07/05/20 13:30 07/06/20 08:33 Home Med (Med Rec Complete!) ASDIRECTED XX 07/04/20 18:45 07/04/20 18:49 DC Magnesium Hydroxide (Milk Of Magnesia) 30 ml DAILYPRN PRN PO CONSTIPATION 07/04/20 16:10 Metformin HCl (Glucophage) 1,000 mg BID PO 07/05/20 09:00 07/05/20 13:22 DC 07/05/20 08:33 Metformin HCl (Glucophage) 1,000 mg BID@08,18 PO 07/05/20 08:00 07/04/20 23:18 DC Metformin HCl (Glucophage) 1,000 mg BID@0800,1800 PO 07/05/20 18:00 07/06/20 07:42 Pravastatin Sodium (Pravachol) 80 mg QHS PO 07/04/20 21:00 07/05/20 21:13 Trazodone HCl (Desyrel) 150 mg QHS PO 07/04/20 21:00 07/05/20 21:13 Allergies Coded Allergies: No Known Allergies (Unverified , 01/21/19) SINAN BOSE M.D. July 06, 2020 10:04
[2020-07-06 16:10] VITALS: BP 134/64
[2020-07-06] MEDS: traZODone 50 MG TAB PO SCH (20:46)
[2020-07-06] MEDS: PRAVASTATIN 20 MG TAB PO SCH (20:46)
[2020-07-07 06:22] VITALS: BP 154/72
[2020-07-07] MEDS: metFORMIN (GLUCOPHAGE) 1000 MG TABLET PO SCH ×2 (08:48→17:21)
[2020-07-07] MEDS: SYMBICORT 160/4.5MCG INHALER 6GM INH SCH ×2 (08:48→20:55)
[2020-07-07] MEDS: BACLOFEN 10 MG TAB PO SCH ×3 (08:54→20:56)
[2020-07-07] MEDS: FLUoxetine 20 MG CAP PO SCH (08:55)
[2020-07-07] MEDS: FUROSEMIDE 20 MG TAB PO SCH (08:55)
[2020-07-07] MEDS: ASPIRIN 81MG ENTERIC TABLET PO SCH (08:56)
--- NOTE | 2020-07-07 10:31 | MHIPNPDOC ---
[facility] Progress Note Progress Note DATE OF SERVICE: 07/07/20 The patient reports that he is feeling better and feeling more hopeful. He has been working with the neighborhood planner and hoping to have some definite answers today and is hoping to be able to go home tomorrow. He is much brighter and more spontaneous and reports feeling more hopeful and strongly denies any suicidal thoughts. He is tolerating his medicine without any complaint of side effect and is fully cooperating with treatment. HISTORY: . VITAL SIGNS: See below. NEW TEST RESULTS: . CURRENT MEDICATIONS: See below. MENTAL STATUS EXAMINATION: Patient is a 65 -year old male, who is in no acute distress. Speech: Is rational and coherent . Language skills are good. Thought processes including: , Organized. Thought content: No suicidal thoughts. Abstract reasoning, and computation: Good. Description of associations: , Organized. Description of abnormal or psychotic thoughts: None. Judgment: , Fair. Insight: fair. . Orientation: , Well oriented. Recent and remote memory: Good]. Attention span and concentration: [Good]. Language: . Fund of knowledge: [Average]. Mood: Euthymic . Affect: [Animated and appropriate]. DIAGNOSES: 1. . Major depression, recurrent 2. . 3. . ASSESSMENT: Showing improvement MANAGEMENT PLAN: [. Continue with the current medicine and discharge planning]. TIME SPENT: [20] minutes. Vital Signs Vital Signs Date Time Temp Pulse Resp B/P (MAP) Pulse Ox O2 Delivery O2 Flow Rate FiO2 07/07/20 08:55 50 154/72 07/07/20 06:22 97.0 18 98 Room Air Laboratory Data 24H Labs Laboratory Tests 2 07/06/20 17:02: Bedside Glucose (Misc Panel) 132H 07/07/20 06:19: Bedside Glucose (Misc Panel) 94 Current Medications Current Medications Medications (Trade) Dose Ordered Sig/Ry Route PRN Reason Start Time Stop Time Status Last Admin Dose Admin Acetaminophen (Tylenol Tab) 650 mg Q6HP PRN PO HEADACHE or DISCOMFORT 07/04/20 16:10 Al Hydrox/Mg Hydrox/Simethicone (Mylanta) 30 ml Q4HP PRN PO HEARTBURN/INDIGESTION 07/04/20 16:10 Albuterol Sulfate (Proventil, Ventolin Hfa) 2 puff Q4HP PRN INH SHORTNESS OF BREATH 07/05/20 13:10 Amlodipine Besylate (Norvasc) 2.5 mg DAILY PO 07/05/20 09:00 07/07/20 08:55 Aripiprazole (AbiLIFY) 2.5 mg QHS PO 07/04/20 21:00 07/06/20 20:44 Aspirin (Ecotrin) 81 mg DAILY PO 07/05/20 09:00 07/07/20 08:56 Baclofen (Lioresal) 10 mg TID PO 07/04/20 21:00 07/07/20 08:54 Budesonide/ Formoterol Fumarate (Symbicort 160/ 4.5mcg) 2 puff RBID INH 07/04/20 20:00 07/07/20 08:48 Fluoxetine HCl (PROzac) 20 mg DAILY PO 07/05/20 09:00 07/07/20 08:55 Furosemide (Lasix) 20 mg DAILY PO 07/05/20 13:30 07/07/20 08:55 Home Med (Med Rec Complete!) ASDIRECTED XX 07/04/20 18:45 07/04/20 18:49 DC Magnesium Hydroxide (Milk Of Magnesia) 30 ml DAILYPRN PRN PO CONSTIPATION 07/04/20 16:10 Metformin HCl (Glucophage) 1,000 mg BID PO 07/05/20 09:00 07/05/20 13:22 DC 07/05/20 08:33 Metformin HCl (Glucophage) 1,000 mg BID@08,18 PO 07/05/20 08:00 07/04/20 23:18 DC Metformin HCl (Glucophage) 1,000 mg BID@0800,1800 PO 07/05/20 18:00 07/07/20 08:48 Pravastatin Sodium (Pravachol) 80 mg QHS PO 07/04/20 21:00 07/06/20 20:46 Trazodone HCl (Desyrel) 150 mg QHS PO 07/04/20 21:00 07/06/20 20:46 Allergies Coded Allergies: No Known Allergies (Unverified , 01/21/19) SINAN BOSE M.D. July 07, 2020 10:31
[2020-07-07 16:11] VITALS: BP 131/60
[2020-07-07] MEDS: traZODone 50 MG TAB PO SCH (20:56)
[2020-07-07] MEDS: PRAVASTATIN 20 MG TAB PO SCH (20:56)
[2020-07-08 06:57] VITALS: BP 129/67
[2020-07-08] MEDS: metFORMIN (GLUCOPHAGE) 1000 MG TABLET PO SCH ×2 (07:50→17:28)
[2020-07-08] MEDS: SYMBICORT 160/4.5MCG INHALER 6GM INH SCH ×2 (07:50→20:33)
[2020-07-08] MEDS: FUROSEMIDE 20 MG TAB PO SCH (08:33)
[2020-07-08] MEDS: BACLOFEN 10 MG TAB PO SCH ×3 (08:33→20:32)
[2020-07-08] MEDS: FLUoxetine 20 MG CAP PO SCH (08:33)
[2020-07-08] MEDS: ASPIRIN 81MG ENTERIC TABLET PO SCH (08:33)
--- NOTE | 2020-07-08 10:49 | MHIPNPDOC ---
[facility] Progress Note Progress Note DATE OF SERVICE: 07/08/20 Patient is reporting significant improvement with his medications and is not feeling as depressed and denies any suicidal thoughts. He is fully cooperating with this medicine of Prozac, Abilify and trazodone and has no complaint of side effect. He is somewhat disappointed after he was toward the that there was no housing available at this time due to unclear financial situation and he is not able to return to his former residence and may have to wait until Saturday to be discharged. He is however pleasant, cooperative and in no acute distress willing to cooperate with discharge plan. HISTORY: . VITAL SIGNS: See below. NEW TEST RESULTS: . CURRENT MEDICATIONS: See below. MENTAL STATUS EXAMINATION: Patient is a 65-year old male, who is , pleasant and cooperative. Speech: Is , productive, rational. Language skills are good. Thought processes including: Organized, relevant. Thought content: Denies any suicidal thoughts. Abstract reasoning, and computation: , Fair. Description of associations: Were organized. Description of abnormal or psychotic thoughts: None. Judgment: , Fair. Insight: fair. . Orientation: Oriented . Recent and remote memory: Good. Attention span and concentration: Good. Language: . Fund of knowledge: Average. Mood: Euthymic. Affect: , Appropriate. DIAGNOSES: 1. . Major depression, recurrent 2. ]. 3. . ASSESSMENT:[Showing improvement] MANAGEMENT PLAN: [. Continue with the current treatment and possible discharge on Saturday]. TIME SPENT: [20] minutes. Vital Signs Vital Signs Date Time Temp Pulse Resp B/P (MAP) Pulse Ox O2 Delivery O2 Flow Rate FiO2 07/08/20 08:33 83 138/66 07/08/20 06:57 98.4 19 98 Room Air Laboratory Data 24H Labs Laboratory Tests 2 07/07/20 22:17: Bedside Glucose (Misc Panel) 154H 07/08/20 06:10: Bedside Glucose (Misc Panel) 95 Current Medications Current Medications Medications (Trade) Dose Ordered Sig/Ry Route PRN Reason Start Time Stop Time Status Last Admin Dose Admin Acetaminophen (Tylenol Tab) 650 mg Q6HP PRN PO HEADACHE or DISCOMFORT 07/04/20 16:10 Al Hydrox/Mg Hydrox/Simethicone (Mylanta) 30 ml Q4HP PRN PO HEARTBURN/INDIGESTION 07/04/20 16:10 Albuterol Sulfate (Proventil, Ventolin Hfa) 2 puff Q4HP PRN INH SHORTNESS OF BREATH 07/05/20 13:10 Amlodipine Besylate (Norvasc) 2.5 mg DAILY PO 07/05/20 09:00 07/08/20 08:33 Aripiprazole (AbiLIFY) 2.5 mg QHS PO 07/04/20 21:00 07/07/20 20:56 Aspirin (Ecotrin) 81 mg DAILY PO 07/05/20 09:00 07/08/20 08:33 Baclofen (Lioresal) 10 mg TID PO 07/04/20 21:00 07/08/20 08:33 Budesonide/ Formoterol Fumarate (Symbicort 160/ 4.5mcg) 2 puff RBID INH 07/04/20 20:00 07/08/20 07:50 Fluoxetine HCl (PROzac) 20 mg DAILY PO 07/05/20 09:00 07/08/20 08:33 Furosemide (Lasix) 20 mg DAILY PO 07/05/20 13:30 07/08/20 08:33 Home Med (Med Rec Complete!) ASDIRECTED XX 07/04/20 18:45 07/04/20 18:49 DC Magnesium Hydroxide (Milk Of Magnesia) 30 ml DAILYPRN PRN PO CONSTIPATION 07/04/20 16:10 Metformin HCl (Glucophage) 1,000 mg BID PO 07/05/20 09:00 07/05/20 13:22 DC 07/05/20 08:33 Metformin HCl (Glucophage) 1,000 mg BID@08,18 PO 07/05/20 08:00 07/04/20 23:18 DC Metformin HCl (Glucophage) 1,000 mg BID@0800,1800 PO 07/05/20 18:00 07/08/20 07:50 Pravastatin Sodium (Pravachol) 80 mg QHS PO 07/04/20 21:00 07/07/20 20:56 Trazodone HCl (Desyrel) 150 mg QHS PO 07/04/20 21:00 07/07/20 20:56 Allergies Coded Allergies: No Known Allergies (Unverified , 01/21/19) SINAN BOSE M.D. July 08, 2020 10:49
[2020-07-08 16:29] VITALS: BP 111/56
[2020-07-08] MEDS: traZODone 50 MG TAB PO SCH (20:33)
[2020-07-08] MEDS: PRAVASTATIN 20 MG TAB PO SCH (20:33)
[2020-07-09 06:23] VITALS: BP 129/63
[2020-07-09] MEDS: SYMBICORT 160/4.5MCG INHALER 6GM INH SCH ×2 (07:25→21:41)
[2020-07-09] MEDS: metFORMIN (GLUCOPHAGE) 1000 MG TABLET PO SCH ×2 (07:25→17:38)
[2020-07-09] MEDS: FUROSEMIDE 20 MG TAB PO SCH (08:59)
[2020-07-09] MEDS: ASPIRIN 81MG ENTERIC TABLET PO SCH (08:59)
[2020-07-09] MEDS: BACLOFEN 10 MG TAB PO SCH ×3 (08:59→21:41)
[2020-07-09] MEDS: FLUoxetine 20 MG CAP PO SCH (08:59)
[2020-07-09 16:14] VITALS: BP 145/78
[2020-07-09] MEDS: PRAVASTATIN 20 MG TAB PO SCH (21:40)
[2020-07-09] MEDS: traZODone 50 MG TAB PO SCH (23:31)
[2020-07-10 06:28] VITALS: BP 129/63
[2020-07-10] MEDS: metFORMIN (GLUCOPHAGE) 1000 MG TABLET PO SCH ×2 (07:18→17:04)
[2020-07-10] MEDS: SYMBICORT 160/4.5MCG INHALER 6GM INH SCH ×2 (07:18→21:07)
[2020-07-10] MEDS: BACLOFEN 10 MG TAB PO SCH ×3 (08:37→21:07)
[2020-07-10] MEDS: ASPIRIN 81MG ENTERIC TABLET PO SCH (08:37)
[2020-07-10] MEDS: FUROSEMIDE 20 MG TAB PO SCH (08:37)
[2020-07-10] MEDS: FLUoxetine 20 MG CAP PO SCH (08:37)
[2020-07-10 16:25] VITALS: BP 139/66
[2020-07-10] MEDS: CEPACOL LOZENGE PO PRN ×2 (18:11→22:58)
[2020-07-10] MEDS: PRAVASTATIN 20 MG TAB PO SCH (21:07)
[2020-07-10] MEDS: traZODone 50 MG TAB PO SCH (22:54)
[2020-07-11 06:46] VITALS: BP 145/67
[2020-07-11] MEDS: SYMBICORT 160/4.5MCG INHALER 6GM INH SCH ×2 (07:25→20:14)
[2020-07-11] MEDS: metFORMIN (GLUCOPHAGE) 1000 MG TABLET PO SCH ×2 (07:25→17:59)
[2020-07-11] MEDS: BACLOFEN 10 MG TAB PO SCH ×3 (08:36→20:14)
[2020-07-11] MEDS: FLUoxetine 20 MG CAP PO SCH (08:37)
[2020-07-11] MEDS: FUROSEMIDE 20 MG TAB PO SCH (08:37)
[2020-07-11] MEDS: ASPIRIN 81MG ENTERIC TABLET PO SCH (08:37)
--- NOTE | 2020-07-11 09:11 | MHIPNPDOC ---
[facility] Progress Note Progress Note DATE OF SERVICE: 07/11/20 The patient reports that he is feeling fine and has no new complaints and is hoping to be able to go home tomorrow. Apparently he would have enough finance and be able to get his own apartment and feeling safe and stable. He is in good control in no acute distress and has no new complaints. HISTORY: . VITAL SIGNS: See below. NEW TEST RESULTS: . CURRENT MEDICATIONS: See below. MENTAL STATUS EXAMINATION: Patient is a 65-year old male, who is , pleasant and cooperative. Speech: Is , rational, coherent. Language skills are good. Thought processes including: , Organized and productive. Thought content: . No psychosis. No suicidal thoughts. Abstract reasoning, and computation: , Fair. Description of associations: . Description of abnormal or psychotic thoughts: None. Judgment: , Fair. Insight: fair.. Orientation: , Well-oriented. Recent and remote memory: Good. Good. Attention span and concentration: Good. Language: . Fund of knowledge: Average. Mood: Euthymic. Affect: , Appropriate. DIAGNOSES: 1. . Major depression 2. . 3. . ASSESSMENT:Maintaining improved mental status and behavior MANAGEMENT PLAN: Plan for discharge tomorrow. TIME SPENT: 15 minutes. Vital Signs Vital Signs Date Time Temp Pulse Resp B/P (MAP) Pulse Ox O2 Delivery O2 Flow Rate FiO2 07/11/20 08:36 97 145/67 07/11/20 06:46 98.7 20 97 Room Air Laboratory Data 24H Labs Laboratory Tests 2 07/10/20 21:11: Bedside Glucose (Misc Panel) 177H 07/10/20 22:56: Bedside Glucose (Misc Panel) 127H 07/11/20 06:12: Bedside Glucose (Misc Panel) 109 Current Medications Current Medications Medications (Trade) Dose Ordered Sig/Ry Route PRN Reason Start Time Stop Time Status Last Admin Dose Admin Acetaminophen (Tylenol Tab) 650 mg Q6HP PRN PO HEADACHE or DISCOMFORT 07/04/20 16:10 Al Hydrox/Mg Hydrox/Simethicone (Mylanta) 30 ml Q4HP PRN PO HEARTBURN/INDIGESTION 07/04/20 16:10 Albuterol Sulfate (Proventil, Ventolin Hfa) 2 puff Q4HP PRN INH SHORTNESS OF BREATH 07/05/20 13:10 07/08/20 14:06 Amlodipine Besylate (Norvasc) 2.5 mg DAILY PO 07/05/20 09:00 07/11/20 08:36 Aripiprazole (AbiLIFY) 2.5 mg QHS PO 07/04/20 21:00 07/10/20 21:07 Aspirin (Ecotrin) 81 mg DAILY PO 07/05/20 09:00 07/11/20 08:37 Baclofen (Lioresal) 10 mg TID PO 07/04/20 21:00 07/11/20 08:36 Budesonide/ Formoterol Fumarate (Symbicort 160/ 4.5mcg) 2 puff RBID INH 07/04/20 20:00 07/11/20 07:25 Cetylpyridinium Chloride (Cepacol) 1 samuel Q4HP PRN PO COUGH 07/10/20 14:00 07/10/20 22:58 Fluoxetine HCl (PROzac) 20 mg DAILY PO 07/05/20 09:00 07/11/20 08:37 Furosemide (Lasix) 20 mg DAILY PO 07/05/20 13:30 07/11/20 08:37 Home Med (Med Rec Complete!) ASDIRECTED XX 07/04/20 18:45 07/04/20 18:49 DC Magnesium Hydroxide (Milk Of Magnesia) 30 ml DAILYPRN PRN PO CONSTIPATION 07/04/20 16:10 Metformin HCl (Glucophage) 1,000 mg BID PO 07/05/20 09:00 07/05/20 13:22 DC 07/05/20 08:33 Metformin HCl (Glucophage) 1,000 mg BID@08,18 PO 07/05/20 08:00 07/04/20 23:18 DC Metformin HCl (Glucophage) 1,000 mg BID@0800,1800 PO 07/05/20 18:00 07/11/20 07:25 Pravastatin Sodium (Pravachol) 80 mg QHS PO 07/04/20 21:00 07/10/20 21:07 Trazodone HCl (Desyrel) 150 mg QHS PO 07/04/20 21:00 07/10/20 22:54 Allergies Coded Allergies: No Known Allergies (Unverified , 01/21/19) SINAN BOSE M.D. July 11, 2020 09:11
[2020-07-11 19:23] VITALS: BP 157/77
[2020-07-11] MEDS: PRAVASTATIN 20 MG TAB PO SCH (20:14)
[2020-07-11] MEDS: traZODone 50 MG TAB PO SCH (23:06)
[2020-07-12 06:23] VITALS: BP 138/74
[2020-07-12] MEDS: metFORMIN (GLUCOPHAGE) 1000 MG TABLET PO SCH (06:35)
[2020-07-12] MEDS ORDERED: GLUC1000 PO (08:08)
[2020-07-12] MEDS ORDERED: FURO20TA2 PO (08:08)
[2020-07-12] MEDS: SYMBICORT 160/4.5MCG INHALER 6GM INH SCH (08:29)
[2020-07-12 08:38] VITALS: BP 138/74
[2020-07-12] MEDS: FUROSEMIDE 20 MG TAB PO SCH (08:38)
[2020-07-12] MEDS: FLUoxetine 20 MG CAP PO SCH (08:38)
[2020-07-12] MEDS: BACLOFEN 10 MG TAB PO SCH (08:38)
[2020-07-12] MEDS: ASPIRIN 81MG ENTERIC TABLET PO SCH (08:38)
--- NOTE | 2020-07-12 11:10 | MHDSPDOC ---
[facility] Discharge Summary Discharge Summary DATE OF ADMISSION: July 04, 2020 at 16:55 DATE OF DISCHARGE: Jul 12, 2020 at 10:50 DISCHARGE DIAGNOSES: 1. . Major depression, recurrent 2. . REASON FOR ADMISSION: 65-year-old male with a history of depression admitted after he expressed suicidal thoughts by jumping off a bridge. Patient recently had increasing conflict with the family. He was staying and was told to leave the house by the end of the June. Patient got very upset, angry, depressed and stated that he wanted to by jumping off a bridge and was sent to the emergency room and admitted. After his admission, patient denied any serious suicidal plan or intent and doesn't have any history of suicidal, but was asking for help for safe discharge plan CONSULTANTS INVOLVED: Non- TREATMENT AND PROGRESS ON THE UNIT : . He was seen for daily supportive therapy and assisted by social work and had financial resource to get a new apartment and the secured the house in for July 12. Patient was continued on his antidepressant medicine of Prozac and Abilify and will be discharged with outpatient follow. HOSPITAL COURSE: The patient has fully cooperated with medicine and discharge planning and maintained good control without any suicidal behavior. He doesn't have any substance abuse issues and denies any other stressors. DISCHARGE ASSESSMENT: Much improved and stable and not suicidal. MENTAL STATUS EXAMINATION ON DISCHARGE: Patient is a 65-year old male, who is in no acute distress. Speech is , productive, coherent. Language skills are good. Thought processes including: Relevant and coherent. Thought content: Denies any suicidal thoughts. Abstract reasoning, and computation: Good. Description of associations: , Organized. Description of abnormal or psychotic thoughts: Non-. Judgment: , Fair. Insight: Fair. Orientation to , well-oriented. Recent and remote memory: Good.. Language: Good. Fund of knowledge: Average. Mood: Euthymic. Affect: , Appropriate. MEDICATIONS ON DISCHARGE: - for . The patient is to continue with his home medicines of Prozac 20 mg in the morning and Abilify 2.5 mg at bedtime - for . - for . PLAN/FOLLOWUP ARRANGEMENTS: As arranged by the partner integration planner. The amount of time spent in the coordination of care for this patient was approximately 40 minutes. ETOH/Disorder Med Rx ETOH/DRUG DISORDER RX: N/A Vital Signs/I&Os Vital Signs Date Time Temp Pulse Resp B/P (MAP) Pulse Ox O2 Delivery O2 Flow Rate FiO2 07/12/20 08:38 63 138/74 07/12/20 06:23 99.0 20 91 Room Air Laboratory Data Labs 24H Laboratory Tests 2 07/11/20 20:16: Bedside Glucose (Misc Panel) 154H 07/12/20 05:49: Bedside Glucose (Misc Panel) 99 Medications Scheduled Amlodipine Besylate (Amlodipine Besylate) 2.5 Mg Tablet, 2.5 MG PO DAILY for 30 Days, #30 Aripiprazole (Abilify) 5 Mg Tab, 2.5 MG PO QHS, (Reported) Aspirin (Aspirin EC) 81 Mg Tab, 81 MG PO DAILY, (Reported) Baclofen (Baclofen) 10 Mg Tablet, 10 MG PO TID, (Reported) Budesonide/Formoterol (Symbicort 160-4.5 Mcg Inhaler) 60 Puff/Inhaler Aers, 2 PUFF INH BID for asthma, (Reported) Fluoxetine HCl (Prozac) 20 Mg Cap, 20 MG PO DAILY, (Reported) Furosemide (Furosemide) 20 Mg Tablet, 20 MG PO DAILY for edema for 7 Days, #7 Metformin HCl (Glucophage) 1,000 Mg Tablet, 1,000 MG PO BID@0800,1800 for DM for 7 Days, #7 Pravastatin Sodium (Pravastatin Sodium) 80 Mg Tablet, 80 MG PO QHS, (Reported) Trazodone HCl (Trazodone HCl) 150 Mg Tab, 150 MG PO QHS, (Reported) Allergies Coded Allergies: No Known Allergies (Unverified , 01/21/19) SINAN BOSE M.D. Jul 12, 2020 11:10
== END 2020-07-12 10:50 | disposition home or self-care (01) | DRG 885 ==
LOC: M PSY 16:55
PROVIDERS: ADMIT Psychiatry & Neurology Psychiatry; ATTEND Psychiatry & Neurology Psychiatry
DX: F33.1 Major depressive disorder, recurrent, moderate (principal); R45.851 Suicidal ideations; E11.9 Type 2 diabetes mellitus without complications; E78.5 Hyperlipidemia, unspecified; I10 Essential (primary) hypertension; E66.9 Obesity, unspecified; G47.33 Obstructive sleep apnea (adult) (pediatric); E55.9 Vitamin D deficiency, unspecified; M54.5 Low back pain; Z87.891 Personal history of nicotine dependence; Z63.8 Other specified problems related to primary support group; Z79.82 Long term (current) use of aspirin; Z79.899 Other long term (current) drug therapy; Z90.49 Acquired absence of other specified parts of digestive tract; Z79.84 Long term (current) use of oral hypoglycemic drugs

== ENCOUNTER 2020-12-11 10:24 | Emergency (ER) | payer OTHER, MEDICARE ==
[~2020-12-11] VITALS: Ht 170.2 cm; Wt 129.1 kg
[~2020-12-11 10:24] MED LIST changes: +GLUC1000 PO
--- OUTSIDE RECORDS SUMMARY | 2020-12-11 10:28 | CCD ---
Author Author [facility] Organization [facility] Address Unknown Phone Unavailable Care Team Providers Care X Ray Consultant Name Role Phone Feola, T Stacy PA Unavailable Unavailable Feola, T Stacy PA Unavailable Unavailable Feola, T Stacy PA Unavailable Unavailable Feola, T Stacy PA Unavailable Unavailable Feola, T Stacy PA Unavailable Unavailable Feola, T Stacy PA Unavailable Unavailable Feola, T Stacy PA Unavailable Unavailable Feola, T Stacy PA Unavailable Unavailable Feola, T Stcay PA Unavailable Unavailable Feola, T Stacy PA Unavailable Unavailable Feola, T Stacy PA Unavailable Unavailable Feola, T Stacy PA Unavailable Unavailable Feola, T Stacy PA Unavailable Unavailable Feola, T Stacy PA Unavailable Unavailable Feola, T Stacy PA Unavailable Unavailable Feola, T Stacy PA Unavailable Unavailable Feola, T Stacy PA Unavailable Unavailable Feola, T Stacy PA Unavailable Unavailable Feola, T Stacy PA Unavailable Unavailable Feola, T Stacy PA Unavailable Unavailable Feola, T Stacy PA Unavailable Unavailable Feola, T Stacy PA Unavailable Unavailable Feola, T Stacy PA Unavailable Unavailable Feola, T Stacy PA Unavailable Unavailable Feola, T Stacy PA Unavailable Unavailable Feola, T Stacy PA Unavailable Unavailable Feola, T Stacy PA Unavailable Unavailable Feola, T Stacy PA Unavailable Unavailable Feola, T Stacy PA Unavailable Unavailable Feola, T Stacy PA Unavailable Unavailable Feola, T Stacy PA Unavailable Unavailable Feola, T Stacy PA Unavailable Unavailable Feola, T Stacy PA Unavailable Unavailable Feola, T Stacy PA Unavailable Unavailable Feola, T Stacy PA Unavailable Unavailable Feola, T Stacy PA Unavailable Unavailable Feola, T Stacy PA Unavailable Unavailable Feola, T Stacy PA Unavailable Unavailable Feola, T Stacy PA Unavailable Unavailable Feola, T Stacy PA Unavailable Unavailable Feola, T Stacy PA Unavailable Unavailable Boyd, M Christopher PA-C Unavailable Unavailable Boyd, M Christopher PA-C Unavailable Unavailable Boyd, M Christopher PA-C Unavailable Unavailable Boyd, M Christopher PA-C Unavailable Unavailable Boyd, M Christopher PA-C Unavailable Unavailable Boyd, M Christopher PA-C Unavailable Unavailable Boyd, M Christopher PA-C Unavailable Unavailable Boyd, M Christopher PA-C Unavailable Unavailable Boyd, M Christopher PA-C Unavailable Unavailable Boyd, M Christopher PA-C Unavailable Unavailable Boyd, M Christopher PA-C Unavailable Unavailable Boyd, M Christopher PA-C Unavailable Unavailable Boyd, M Christopher PA-C Unavailable Unavailable Boyd, M Christopher PA-C Unavailable Unavailable Boyd, M Christopher PA-C Unavailable Unavailable Boyd, M Christopher PA-C Unavailable Unavailable Boyd, M Christopher PA-C Unavailable Unavailable Boyd, M Christopher PA-C Unavailable Unavailable Boyd, M Christopher PA-C Unavailable Unavailable Boyd, M Christopher PA-C Unavailable Unavailable Boyd, M Christopher PA-C Unavailable Unavailable Boyd, M Christopher PA-C Unavailable Unavailable Boyd, M Christopher PA-C Unavailable Unavailable Boyd, M Christopher PA-C Unavailable Unavailable Boyd, M Christopher PA-C Unavailable Unavailable Boyd, M Christopher PA-C Unavailable Unavailable Re-disclosure Warning The records that you are about to access may contain information from federally-assisted alcohol or drug abuse programs. If such information is present, then the following federally mandated warning applies: This information has been disclosed to you from records protected by federal confidentiality rules (42 CFR part 2). The federal rules prohibit you from making any further disclosure of this information unless further disclosure is expressly permitted by the written consent of the person to whom it pertains or as otherwise permitted by 42 CFR part 2. A general authorization for the release of medical or other information is NOT sufficient for this purpose. The Federal rules restrict any use of the information to criminally investigate or prosecute any alcohol or drug abuse patient.The records that you are about to access may contain highly sensitive health information, the redisclosure of which is protected by Article 27-F of the [facility] Public Health law. If you continue you may have access to information: Regarding HIV / AIDS; Provided by facilities licensed or operated by the [facility] Office of Mental Health; or Provided by the [facility] Office for People With Developmental Disabilities. If such information is present, then the following [facility] mandated warning applies: This information has been disclosed to you from confidential records which are protected by state law. State law prohibits you from making any further disclosure of this information without the specific written consent of the person to whom it pertains, or as otherwise permitted by law. Any unauthorized further disclosure in violation of state law may result in a fine or residential sentence or both. A general authorization for the release of medical or other information is NOT sufficient authorization for further disc losure. Encounters Encounter Providers Location Date Indications Data Source(s ) Outpatient Attender: Stacy LUONGttender: Miguelangel arguello PA-C 09/07/2020 01:00:19 PM EDT - 09/07/2020 02:01:46 PM EDT [facility] ([facility]) Immunizations Vaccine Date Status Description Data Source(s) COVID-19 VACCINE Moderna 05/30/2020 12:00:00 AM EDT completed MSSIIS Vaccine Series Complete: YESThis Data wa s Submitted to [facility] Via [facility]. COVID-19 VACCINE Moderna 04/29/2020 12:00:00 AM EDT completed MSSIIS Vaccine Series Complete: NOThis Data was Submitted to [facility] Via [employer]. Medications No Information Insurance Providers Payer name Policy type / Coverage type Policy ID Covered democrat ID Covered democrat's relationship to torre Policy Torre Plan Information ABHIJEET CROSS [id number] S [id number] [facility] [id number] S [id number] [facility] [id number] S [id number] KELLIE [id number] SP [id number] 200 'S ADMINISTRATION [id number] SP [id number] KELLIE [id number] SP [id number] 200 [place] MEDICAID [id number] [place] 7 [id number] [place] [employer] [place]/ [id number] Self [id number] FOR LIFE -O/P [id number] 18 [id number] UN CP DUAL COMP - FACILITY [id number] 18 [id number] [place] [id number] S [id number] WEST O [id number] S [id number] MEDICARE [facility] O [id number] S [id number] MEDICARE [id number] SP [id number] [place] [id number] S [id number] MEDICARE [id number] SP [id number] [place] [id number] 18 [id number] [place] -RECURRING [id number] 18 [id number] [place] [id number] SP [id number] [place] -CLIN[facility] [id number] 18 [id number] MEDICARE COMPLETE [id number] SP [id number] [place] [id number] 18 [id number] [place] [facility] [id number] 18 [id number] KELLIE CARE [id number] S [id number] KELLIE CARE [id number] S [id number] KELLIE CARE [id number] S [id number] KELLIE CARE [id number] S [id number] KELLIE CARE [id number] S [id number] [employer] [place] CCN [id number] SP [id number] [facility] [id number] SP [id number] MEDICARE [id number] SP [id number] [facility] [id number] SP [id number] Problems, Conditions, and Diagnoses No Information Surgeries/Procedures No Information Results ID Date Data Source [id number] 07/02/2020 10:33:00 PM EDT [facility] Name Value Range Interpretation Code Description Data Sherei rce(s) Supporting Document(s) SARS coronavirus 2 RNA [Presence] in Res piratory specimen by CRISTINA with probe detection NEGATIVE [facility] This lab was ordered by [facility] a nd reported by [facility]. Procedure Social History No Information
--- OUTSIDE RECORDS SUMMARY | 2020-12-11 12:21 | CCD ---
Author Author [facility] Organization [facility] Address Unknown Phone Unavailable Care Team Providers Care Premix Operator Concentrate Name Role Phone Feola, T Stacy PA [...] protected by Article 27-F of the [facility] Public Health law. If you continue you may have access to information: Regarding HIV / AIDS; Provided by facilities licensed or operated by the [facility] Office of Mental Health; or Provided by the [facility] Office for People With Developmental Disabilities. If such information is present, then the following [facility] mandated warning applies: This information has been [...] law may result in a fine or halfway sentence or both. A general authorization for the release of medical or other information is NOT sufficient authorization for further disc losure. Encounters Encounter Providers Location Date Indications Data Source(s ) Outpatient Attender: Stacy LUONGttender: Miguelangel arguello PA-C 09/07/2020 01:00:19 PM EDT - 09/07/2020 02:01:46 PM EDT [facility] ([facility]) Immunizations Vaccine Date Status Description Data Source(s) COVID-19 VACCINE Moderna 05/30/2020 12:00:00 AM EDT completed [facility] Vaccine Series Complete: YESThis Data wa s Submitted to [facility]. COVID-19 VACCINE Moderna 04/29/2020 12:00:00 AM EDT completed [facility] Vaccine Series Complete: NOThis Data was Submitted to [facility]. Medications No Information Insurance Providers Payer name Policy type / Coverage type Policy ID Covered green party ID Covered green party's relationship to torre Policy [place] Plan Information BLUE CROSS [id number] S [id number] [facility] PLAN [id number] S [id number] [facility] [id number] S [id number] KELLIE [id number] SP [id number] 200 'S ADMINISTRATION [id number] SP [id number] KELLIE [id number] SP [id number] [place] MEDICAID [id number] [place] 7 [id number] [place] [employer] [place]/ [id number] Self [id number] FOR LIFE -O/P [id number] 18 [id number] UNHC CP DUAL COMP - FACILITY [id number] 18 [id number] [place] [place] O [id number] S [id number] WEST O [id number] S [id number] MEDICARE COMPLETE-[facility] O [id number] S [id number] MEDICARE [id number] SP [id number] MEDICARE [id number] SP [id number] [place] [id number] 18 [id number] [place] -[place]CURR[place] [id number] 18 [id number] [place] [id number] SP [id number] [facility] [place] [facility] [id number] 18 [id number] [facility] [place] [facility] [facility] [id number] 18 [id number] [place] [facility] [place] [facility] [id number] 18 [id number] KELLIE CARE [id number] S [id number] KELLIE CARE [id number] S [id number] KELLIE CARE [id number] S [id number] KELLIE CARE [id number] S [id number] KELLIE CARE [id number] S [id number] [place]ARE [place] [id number] S [id number] [facility] [id number] SP [id number] MEDICARE COMPLETE [id number] SP [id number] [facility] [id number] SP [id number] MEDICARE [id number] SP [id number] [facility] [id number] SP [id number] [facility] [id number] SP [id number] MEDICARE [id number] SP [id number] Problems, Conditions, and Diagnoses No Information Surgeries/Procedures No Information Results ID Date Data Source [id number] 07/02/2020 10:33:00 PM EDT [facility] Name Value Range Interpretation Code Description Data Sherie rce(s) Supporting Document(s) SARS coronavirus 2 RNA [Presence] in Res piratory specimen by CRISTINA with probe detection NEGATIVE [facility] This lab was ordered by [facility] a nd reported by [facility]. Procedure Social History No Information
[2020-12-11 13:58] LABS: BASO % 0.5 % (0.0-1.0); EOS # 0.4 10^3/uL (0.0-0.5); EOS % 4.9 % (0.0-3.0); HEMATOCRIT 43.4 % (42.0-52.0); HEMOGLOBIN 14.6 g/dl (13.5-17.5); LYMPH # 1.6 10^3/uL (1.5-5.0); LYMPH % 21.2 % (24.0-44.0); MEAN CORPUSCULAR HEMOGLOBIN 30.2 pg (27.0-33.0); MEAN CORPUSCULAR HGB CONC 33.6 g/dl (32.0-36.5); MEAN CORPUSCULAR VOLUME 89.9 fl (80.0-96.0); MONO # 0.6 10^3/uL (0.0-0.8); MONO % 8.4 % (2.0-8.0); NEUTROPHILS # 4.9 10^3/uL (1.5-8.5); NEUTROPHILS % 64.2 % (36.0-66.0); PLATELET COUNT, AUTOMATED 162 10^3/uL (150-450); RED BLOOD COUNT 4.83 10^6/uL (4.30-6.10); WHITE BLOOD COUNT 7.6 10^3/uL (4.0-10.0)
[2020-12-11 14:23] LABS: ALBUMIN 3.3 GM/DL (3.2-5.2); ALT/SGPT 66 U/L (12-78); BILIRUBIN,DIRECT 0.1 MG/DL (0.0-0.2); BILIRUBIN,TOTAL 0.5 MG/DL (0.2-1.0); BLOOD UREA NITROGEN 17 MG/DL (7-18); CALCIUM LEVEL 8.6 MG/DL (8.8-10.2); CARBON DIOXIDE LEVEL 27 MEQ/L (21-32); CHLORIDE LEVEL 111 MEQ/L (98-107); CREATININE FOR GFR 0.86 MG/DL (0.70-1.30); GLOMERULAR FILTRATION RATE > 60.0 (>49); GLUCOSE, FASTING 110 MG/DL (70-100); LIPASE 73 U/L (73-393); POTASSIUM SERUM 4.2 MEQ/L (3.5-5.1); SODIUM LEVEL 143 MEQ/L (136-145); TOTAL PROTEIN 6.6 GM/DL (6.4-8.2)
[2020-12-11] MEDS ORDERED: NS 1,000 ML IV ONE (16:20)
[2020-12-11] MEDS ORDERED: KETOROLAC 30 MG/ML 1ML VIAL IV ONE (16:20)
[2020-12-11] MEDS ORDERED: ISOVUE-370 76% 100ML VIAL As Ordered ONE (16:23)
[2020-12-11 16:42] LABS: CK-MB VALUE MASS 1.1 NG/ML (<3.6); CPK CREATINE PHOSPHOKINASE 99 U/L (39-308); MB/CK RELATIVE INDEX 1.11 (< OR =4); TROPONIN I < 0.02 NG/ML (< 0.10)
--- NOTE | 2020-12-11 16:59 | REP ---
INDICATION: RUQ pain/diffuse abdominal pain. COMPARISON: 03/16/2016 the latest prior TECHNIQUE: Standard helical technique after the intravenous administration of 100 cc Isovue 370. No oral bowel preparatory contrast was administered prior to the exam. FINDINGS: The lung bases are clear and unchanged. Once again, diffuse low density seen throughout the hepatic parenchyma status quo. There are no enhancing hepatic lesions. The gallbladder, spleen, pancreas, adrenal glands, and kidneys are within normal limits. The abdominal aorta and para-aortic regions are within normal limits. The bowel loops and the mesenteries are within normal limits. There is no free fluid or free air. There is no mass or adenopathy Bone window technique throughout the examination shows the osseous structures to be stable and intact. IMPRESSION: There is evidence of diffuse fatty infiltration of the liver status quo. There is no evidence of acute disease. Findings as described above. <Electronically signed by Ranulfo Campbell > 12/11/20 [id number]
--- NOTE | 2020-12-11 17:42 | REP ---
INDICATION: RUQ pain. COMPARISON: 01/21/2019 TECHNIQUE: Real-time sonographic evaluation of the right upper quadrant with Doppler FINDINGS: Multiple ultrasonographic images of the liver show diffuse increase echoes throughout the hepatic parenchyma without evidence of a mass or ductal dilatation. The common bile duct measures between 4 and 5 mm mm in its greatest transverse dimension. Multiple ultrasonographic images of the gallbladder show multiple echogenic foci within the gallbladder lumen which casts acoustic shadows. There is no gallbladder wall thickening or pericholecystic edema. Images of the pancreatic region show no gross abnormality. The imaged portion of the right kidney is unremarkable. IMPRESSION: Fatty infiltration of the liver. Cholelithiasis. Accredited by the [employer] in General Ultrasound. <Electronically signed by Ranulfo Campbell > 12/11/20 [id number]
--- NOTE | 2020-12-11 18:23 | REP ---
INDICATION: Abdominal Pain. COMPARISON: None. TECHNIQUE: PA and lateral FINDINGS: The superior mediastinal structures are midline. The cardiac silhouette is unremarkable in size, shape, and position. The diaphragmatic surfaces of the lungs are regular, and the costophrenic angles are clear. The pulmonary agosto are clear. The imaged osseous structures are intact. IMPRESSION: There is no acute cardiopulmonary disease. <Electronically signed by Ranulfo Campbell > 12/11/20 [id number]
[2020-12-11] MEDS ORDERED: FUROSEMIDE 20 MG TAB PO ONE (18:30)
[2020-12-11] MEDS ORDERED: PANTOPRAZOLE 40MG VIAL (C9113 PER 1) IV ONE (18:30)
[2020-12-11] MEDS ORDERED: amLODIPine 5 MG TAB PO ONE (18:30)
[2020-12-11] MEDS ORDERED: ACETAMINOPHEN 500 MG TAB PO ONE (18:35)
[2020-12-11 18:44] VITALS: BP 195/91
[2020-12-11 19:50] VITALS: BP 165/95
--- NOTE | 2020-12-12 05:51 | ECGEPIP ---
[facility] - ED Test Date: 2020-12-11 Pat Name: LOBITO FORMAN Department: Room: - Gender: Male Hedge Trimmer: RADHA : 1955 Requested By: JAZIEL Ram PA-C Order Number: [id number] Reading MD: Enrique Hernandez Measurements Intervals Arnold Rate: 63 P: 41 MA: 194 QRS: 31 QRSD: 114 T: 34 QT: 406 QTc: 415 Interpretive Statements Normal sinus rhythm Low voltage QRS Right bundle branch block Septal infarct , age undetermined SIMILAR TO 01/21/19 Electronically Signed on 12-12-2020 5:51:04 EDT by Enrique Hernandez
== END 2020-12-11 19:50 | disposition home or self-care (01) ==
LOC: M ED 10:24
DX: K80.20 Calculus of gallbladder without cholecystitis without obstruction (principal); K76.0 Fatty (change of) liver, not elsewhere classified; R06.2 Wheezing; I45.10 Unspecified right bundle-branch block; E11.9 Type 2 diabetes mellitus without complications; I10 Essential (primary) hypertension; E78.5 Hyperlipidemia, unspecified; G47.33 Obstructive sleep apnea (adult) (pediatric); G89.29 Other chronic pain; M54.50 Low back pain, unspecified; Z90.49 Acquired absence of other specified parts of digestive tract; Z85.038 Personal history of other malignant neoplasm of large intestine; F17.200 Nicotine dependence, unspecified, uncomplicated; Z79.899 Other long term (current) drug therapy
CPT/HCPCS: 71046; 74177; 76705; 80048; 80076; 81001; 82550; 82553; 83605; 83690; 84484; 85025; 93005; 96374; 96375; 99284; C9113; J1885; Q9967

== ENCOUNTER 2021-03-09 21:30 | Emergency (ER) | payer OTHER, MEDICARE ==
[~2021-03-09] VITALS: Ht 172.7 cm; Wt 137.0 kg
[~2021-03-09 21:30] MED LIST changes: -FLUO10CA16 PO; +FLUO10CA18 PO
[2021-03-09 22:43] LABS: BASO % 0.4 % (0.0-1.0); EOS # 0.3 10^3/uL (0.0-0.5); EOS % 3.4 % (0.0-3.0); HEMATOCRIT 39.6 % (42.0-52.0); HEMOGLOBIN 13.4 g/dl (13.5-17.5); LYMPH # 1.7 10^3/uL (1.5-5.0); LYMPH % 18.7 % (24.0-44.0); MEAN CORPUSCULAR HEMOGLOBIN 30.1 pg (27.0-33.0); MEAN CORPUSCULAR HGB CONC 33.8 g/dl (32.0-36.5); MONO # 0.8 10^3/uL (0.0-0.8); MONO % 9.3 % (2.0-8.0); NEUTROPHILS # 6.1 10^3/uL (1.5-8.5); NEUTROPHILS % 67.6 % (36.0-66.0); PLATELET COUNT, AUTOMATED 171 10^3/uL (150-450); RED BLOOD COUNT 4.45 10^6/uL (4.30-6.10)
[2021-03-09 22:56] LABS: PROTHROMBIN TIME 13.6 SECONDS (12.7-14.5)
[2021-03-09 22:57] LABS: PARTIAL THROMBOPLASTIN TIME 28.8 SECONDS (25.9-37.0)
[2021-03-09 23:14] LABS: CK-MB VALUE MASS 1.1 NG/ML (<3.6); MB/CK RELATIVE INDEX 0.79 (< OR =4)
[2021-03-09] MEDS ORDERED: methylPREDNISolone 125MG 2ML VIAL IV ONE (23:15)
[2021-03-09] MEDS ORDERED: COMBIVENT RESPIMAT 100-20MCG INHALER 4GM INH ONE (23:25)
[2021-03-09 23:38] LABS: ALBUMIN 3.4 GM/DL (3.2-5.2); ALT/SGPT 64 U/L (12-78); BILIRUBIN,DIRECT 0.1 MG/DL (0.0-0.2); BILIRUBIN,TOTAL 0.4 MG/DL (0.2-1.0); BLOOD UREA NITROGEN 19 MG/DL (7-18); CALCIUM LEVEL 8.6 MG/DL (8.8-10.2); CARBON DIOXIDE LEVEL 28 MEQ/L (21-32); CHLORIDE LEVEL 110 MEQ/L (98-107); CREATININE FOR GFR 1.03 MG/DL (0.70-1.30); FREE T4 1.09 NG/DL (0.76-1.46); GLOMERULAR FILTRATION RATE > 60.0 (>49); GLUCOSE, FASTING 195 MG/DL (70-100); LIPASE 91 U/L (73-393); NT-PRO BNP 53 PG/ML (<125); POTASSIUM SERUM 4.2 MEQ/L (3.5-5.1); SODIUM LEVEL 145 MEQ/L (136-145); TOTAL PROTEIN 6.5 GM/DL (6.4-8.2)
[2021-03-10] MEDS ORDERED: IPRATROPIUM 0.5MG/ALBUTEROL 2.5MG INH SOL UD 3ML (DUONEB) NEB ONE ×2 (01:00)
[2021-03-10] MEDS ORDERED: COMBAER6 INH (01:03)
[2021-03-10] MEDS ORDERED: PRED20TA PO (01:06)
[2021-03-10] MEDS ORDERED: AUGM875T28 PO (01:13)
[2021-03-10 01:31] VITALS: BP 158/68
== END 2021-03-10 01:53 | disposition home or self-care (01) ==
LOC: M ED 21:30
DX: J44.1 Chronic obstructive pulmonary disease with (acute) exacerbation (principal); J98.01 Acute bronchospasm; I45.10 Unspecified right bundle-branch block; E11.9 Type 2 diabetes mellitus without complications; I10 Essential (primary) hypertension; F32.A Depression, unspecified; E78.5 Hyperlipidemia, unspecified; Z79.84 Long term (current) use of oral hypoglycemic drugs; Z79.82 Long term (current) use of aspirin; Z79.899 Other long term (current) drug therapy
CPT/HCPCS: 71045; 80048; 80076; 82550; 82553; 83690; 83880; 84439; 84443; 84484; 85025; 85610; 85730; 87798; 93005; 93041; 94640; 94760; 96374; 99285; J2930

== ENCOUNTER 2021-04-06 07:30 | Day surgery (SDC) | payer OTHER ==
[~2021-04-06] VITALS: Ht 172.7 cm; Wt 135.0 kg
[~2021-04-06 07:30] MED LIST changes: +AUGM875T28 PO; +COMBAER6 INH; +PRED20TA PO
[2021-04-06] MEDS ORDERED: ONDANSETRON 4MG/2ML VIAL IV ONE (08:00)
[2021-04-06] MEDS ORDERED: MORPHINE 4 MG/ML 1ML VIAL/SYRINGE IV PRN ×2 (08:00→11:25)
[2021-04-06 08:29] LABS: BASO % 0.4 % (0.0-1.0); EOS # 0.4 10^3/uL (0.0-0.5); EOS % 4.9 % (0.0-3.0); HEMOGLOBIN 13.7 g/dl (13.5-17.5); LYMPH # 1.4 10^3/uL (1.5-5.0); LYMPH % 19.1 % (24.0-44.0); MEAN CORPUSCULAR HEMOGLOBIN 29.5 pg (27.0-33.0); MEAN CORPUSCULAR HGB CONC 33.4 g/dl (32.0-36.5); MEAN CORPUSCULAR VOLUME 88.4 fl (80.0-96.0); MONO # 0.6 10^3/uL (0.0-0.8); MONO % 8.1 % (2.0-8.0); NEUTROPHILS # 4.8 10^3/uL (1.5-8.5); NEUTROPHILS % 66.8 % (36.0-66.0); PLATELET COUNT, AUTOMATED 191 10^3/uL (150-450); RED BLOOD COUNT 4.64 10^6/uL (4.30-6.10); WHITE BLOOD COUNT 7.2 10^3/uL (4.0-10.0)
[2021-04-06] MEDS: NS 1,000 ML IV SCH ×3 (08:31→21:28)
[2021-04-06 08:55] LABS: ALBUMIN 3.5 GM/DL (3.2-5.2); BILIRUBIN,DIRECT 0.2 MG/DL (0.0-0.2); BILIRUBIN,TOTAL 0.6 MG/DL (0.2-1.0); TOTAL PROTEIN 6.7 GM/DL (6.4-8.2)
[2021-04-06] MEDS ORDERED: ONDANSETRON 4MG/2ML VIAL IV PRN ×2 (11:25→21:00)
[2021-04-06] MEDS ORDERED: KETOROLAC 30 MG/ML 1ML VIAL IV PRN (11:25)
[2021-04-06] MEDS ORDERED: NS 1,000 ML IV SCH (11:25)
[2021-04-06 12:12] LABS: RSV AMPLIFICATION NEGATIVE (NEGATIVE)
[2021-04-06] MEDS ORDERED: VENTAER INH (12:48)
[2021-04-06] MEDS ORDERED: AMLO2.5T3 PO (12:48)
[2021-04-06] MEDS ORDERED: FURO40TA2 PO (12:48)
[2021-04-06] MEDS ORDERED: METF-877 PO (12:48)
[2021-04-06] MEDS ORDERED: FLUT1BLS2 INH (12:48)
[2021-04-06] MEDS ORDERED: TRAZ-252 PO (12:48)
[2021-04-06] MEDS ORDERED: POTA1TAB14 PO (12:48)
[2021-04-06] MEDS ORDERED: HOME MED LIST COMPLETE! XX SCH (12:50)
[2021-04-06] MEDS: HumaLOG INSULIN (NovoLOG) PER UNIT SC SCH ×3 (12:55→23:43)
[2021-04-06] MEDS: PIPERACILLIN/TAZOBACTAM SOD 3.375 GM in D5W MINI-BAG PLUS 50 ML IV SCH ×3 (12:56→23:44)
[2021-04-06] MEDS ORDERED: COMBIVENT RESPIMAT 100-20MCG INHALER 4GM INH SCH (16:00)
[2021-04-06] MEDS ORDERED: ROCURONIUM BROMIDE 50 MG/5 ML VIAL As Ordered ONE ×2 (16:01→17:32)
[2021-04-06] MEDS ORDERED: propofoL 200 MG/20 ML VIAL As Ordered ONE ×2 (16:01→16:19)
[2021-04-06] MEDS ORDERED: dexameTHASONE 4 MG/ML 1ML VIAL (J1100 PER 1MG) As Ordered ONE (16:01)
[2021-04-06] MEDS ORDERED: KETOROLAC 60MG 2ML VIAL As Ordered ONE (16:01)
[2021-04-06] MEDS ORDERED: ONDANSETRON 4MG/2ML VIAL As Ordered ONE (16:01)
[2021-04-06] MEDS ORDERED: LIDOCAINE 2% 100MG/5ML SDV (FOR ANES.) As Ordered ONE (16:01)
[2021-04-06] MEDS ORDERED: fentaNYL 100 MCG/2 ML INJECTION As Ordered ONE (16:02)
[2021-04-06] MEDS ORDERED: ACETAMINOPHEN 1000MG 100ML IV BTL (OFIRMEV) (J0131 PER 10MG) As Ordered ONE (16:02)
[2021-04-06] MEDS ORDERED: SUGAMMADEX SODIUM 500 MG/5 ML VIAL (BRIDION) As Ordered ONE (16:02)
[2021-04-06] MEDS ORDERED: MIDAZOLAM INJ 2MG/2ML VIAL (J2250 PER 1MG) As Ordered ONE (16:04)
[2021-04-06] MEDS ORDERED: BUPIVACAINE HCL 0.25% 30ML VIAL As Ordered ONE (16:51)
[2021-04-06] MEDS ORDERED: PHENYLephrine 500MCG 5ML (100MCG/ML) SYRINGE As Ordered ONE (17:06)
[2021-04-06] MEDS ORDERED: ePHEDrine SULFATE 25 MG/5 ML(5MG/ML) SYRINGE As Ordered ONE (17:06)
[2021-04-06] MEDS ORDERED: HYDROmorphone HCL 2MG/ML 1ML VIAL As Ordered ONE (18:06)
[2021-04-06] MEDS ORDERED: ZOSYN 3.375GM VIAL As Ordered ONE (18:32)
[2021-04-06] MEDS ORDERED: ACETAMINOPHEN TAB 650MG DOSE (2X325MG) PO PRN (20:00)
[2021-04-06] MEDS ORDERED: SYMBICORT 160/4.5MCG INHALER 6GM INH SCH (20:00)
[2021-04-06] MEDS ORDERED: ALBUTEROL 90 MCG/ACT 8GM HFA INHALER INH PRN (20:00)
[2021-04-06] MEDS ORDERED: NORCO, ANEXSIA 5/325MG TABLET (HYDROcodone/ACETAMINOPHEN) PO PRN (20:00)
[2021-04-06] MEDS ORDERED: PILL CUTTER 1 EACH XX PRN (20:30)
[2021-04-06 20:45] VITALS: BP 155/85
[2021-04-06] MEDS ORDERED: HYDROMORPHONE HCL 0.5 MG/ 0.5 ML SYRINGE (J1170 PER 1) IV PRN (21:00)
[2021-04-06] MEDS ORDERED: fentaNYL 100 MCG/2 ML INJECTION IV PRN (21:00)
[2021-04-06] MEDS ORDERED: oxyCODONE 5MG TAB PO PRN (21:00)
[2021-04-06] MEDS ORDERED: LR 1,000 ML IV SCH (21:00)
[2021-04-06 21:15] VITALS: BP 155/88
[2021-04-06 21:43] VITALS: BP 154/87
[2021-04-06 22:45] VITALS: BP 152/89
[2021-04-06 23:45] VITALS: BP 144/88
[2021-04-07 00:45] VITALS: BP 136/91
[2021-04-07 01:45] VITALS: BP 133/90
[2021-04-07 05:45] VITALS: BP 125/86
[2021-04-07 06:09] LABS: BASO % 0.1 % (0.0-1.0); HEMATOCRIT 38.4 % (42.0-52.0); LYMPH # 0.7 10^3/uL (1.5-5.0); LYMPH % 8.1 % (24.0-44.0); MEAN CORPUSCULAR HEMOGLOBIN 30.1 pg (27.0-33.0); MEAN CORPUSCULAR HGB CONC 33.9 g/dl (32.0-36.5); MEAN CORPUSCULAR VOLUME 88.9 fl (80.0-96.0); MONO # 0.3 10^3/uL (0.0-0.8); MONO % 3.4 % (2.0-8.0); NEUTROPHILS # 7.7 10^3/uL (1.5-8.5); NEUTROPHILS % 87.8 % (36.0-66.0); PLATELET COUNT, AUTOMATED 189 10^3/uL (150-450); RED BLOOD COUNT 4.32 10^6/uL (4.30-6.10); WHITE BLOOD COUNT 8.7 10^3/uL (4.0-10.0)
[2021-04-07] MEDS: PIPERACILLIN/TAZOBACTAM SOD 3.375 GM in D5W MINI-BAG PLUS 50 ML IV SCH (06:15)
[2021-04-07] MEDS: HumaLOG INSULIN (NovoLOG) PER UNIT SC SCH ×2 (06:15→12:34)
[2021-04-07 07:05] LABS: ALT/SGPT 96 U/L (12-78); BILIRUBIN,TOTAL 0.6 MG/DL (0.2-1.0); BLOOD UREA NITROGEN 17 MG/DL (7-18); CARBON DIOXIDE LEVEL 25 MEQ/L (21-32); CHLORIDE LEVEL 107 MEQ/L (98-107); CREATININE FOR GFR 1.03 MG/DL (0.70-1.30); GLOMERULAR FILTRATION RATE > 60.0 (>49); GLUCOSE, FASTING 201 MG/DL (70-100); POTASSIUM SERUM 4.3 MEQ/L (3.5-5.1); SODIUM LEVEL 139 MEQ/L (136-145); TOTAL PROTEIN 5.9 GM/DL (6.4-8.2)
[2021-04-07] MEDS ORDERED: FLUTICASONE HFA 220 MCG 12 GM INHALER (FLOVENT) INH SCH (08:00)
[2021-04-07] MEDS ORDERED: FLUoxetine 20 MG CAP PO SCH (09:00)
[2021-04-07] MEDS ORDERED: FUROSEMIDE 40 MG TAB PO SCH (09:00)
[2021-04-07] MEDS ORDERED: POTASSIUM CHLORIDE 10MEQ SR TABLET PO SCH (09:00)
[2021-04-07] MEDS ORDERED: ASPIRIN 81MG ENTERIC TABLET PO SCH (09:00)
[2021-04-07] MEDS ORDERED: metFORMIN (GLUCOPHAGE) 1000 MG TABLET PO SCH (09:00)
[2021-04-07 09:05] VITALS: BP 127/84
[2021-04-07 10:00] VITALS: BP 150/63
[2021-04-07 14:00] VITALS: BP 140/79
[2021-04-07] MEDS ORDERED: traZODone 50 MG TAB PO SCH (21:00)
[2021-04-07] MEDS ORDERED: PRAVASTATIN 20 MG TAB PO SCH (21:00)
== END 2021-04-07 17:53 | disposition home or self-care (01) ==
LOC: M ED 07:30 → M SDC 11:48 → M MSPAV 20:45 → UNDOADMIN 20:45 → M MSPAV 20:45 → UNDODISIN 04-07 17:53 → M SDC 04-07 17:53
PROVIDERS: ATTEND Surgery
DX: K80.12 Calculus of gallbladder with acute and chronic cholecystitis without obstruction (principal); K82.8 Other specified diseases of gallbladder; K66.0 Peritoneal adhesions (postprocedural) (postinfection); K76.0 Fatty (change of) liver, not elsewhere classified; E66.01 Morbid (severe) obesity due to excess calories; E11.9 Type 2 diabetes mellitus without complications; I10 Essential (primary) hypertension; E78.5 Hyperlipidemia, unspecified; J45.909 Unspecified asthma, uncomplicated; M54.9 Dorsalgia, unspecified; F32.9 Major depressive disorder, single episode, unspecified; J44.9 Chronic obstructive pulmonary disease, unspecified; G47.33 Obstructive sleep apnea (adult) (pediatric); Z87.891 Personal history of nicotine dependence; Z79.899 Other long term (current) drug therapy; Z79.82 Long term (current) use of aspirin; Z79.84 Long term (current) use of oral hypoglycemic drugs; Z79.51 Long term (current) use of inhaled steroids
CPT/HCPCS: 36415; 47562; 76705; 80047; 80053; 80076; 83690; 85025; 87631; 88304; 93005; 93041; 94640; 96361; 96374; 96375; 96376; 99285; J0131; J1100; J1170; J1815; J1885; J2250; J2270; J2370; J2405; J2543; J3010

== ENCOUNTER 2021-11-13 16:52 | Emergency (ER) | payer OTHER ==
[~2021-11-13 16:52] MED LIST changes: +AMLO2.5T3 PO; +FLUT1BLS2 INH; +FURO40TA2 PO; +TRAZ-252 PO; +VENTAER INH
[2021-11-13] MEDS ORDERED: ASPIRIN 81 MG CHEW TABLET PO ONE (17:30)
[2021-11-13] MEDS: IPRATROPIUM 0.5MG/ALBUTEROL 2.5MG INH SOL UD 3ML (DUONEB) NEB PRN ×3 (18:00→19:36)
[2021-11-13 18:36] LABS: BASO % 0.4 % (0.0-1.0); EOS # 0.5 10^3/uL (0.0-0.5); EOS % 5.6 % (0.0-3.0); HEMATOCRIT 40.2 % (42.0-52.0); HEMOGLOBIN 13.4 g/dl (13.5-17.5); LYMPH # 1.4 10^3/uL (1.5-5.0); LYMPH % 16.8 % (24.0-44.0); MEAN CORPUSCULAR HEMOGLOBIN 29.8 pg (27.0-33.0); MEAN CORPUSCULAR HGB CONC 33.3 g/dl (32.0-36.5); MEAN CORPUSCULAR VOLUME 89.5 fl (80.0-96.0); MONO # 0.3 10^3/uL (0.0-0.8); MONO % 3.7 % (2.0-8.0); NEUTROPHILS # 5.9 10^3/uL (1.5-8.5); NEUTROPHILS % 72.6 % (36.0-66.0); PLATELET COUNT, AUTOMATED 188 10^3/uL (150-450); RED BLOOD COUNT 4.49 10^6/uL (4.30-6.10); WHITE BLOOD COUNT 8.1 10^3/uL (4.0-10.0)
[2021-11-13 18:48] LABS: INR 0.98; PROTHROMBIN TIME 13.4 SECONDS (12.7-14.5)
[2021-11-13 19:10] LABS: RSV AMPLIFICATION NEGATIVE (NEGATIVE)
[2021-11-13 19:23] LABS: CK-MB VALUE MASS 1.8 NG/ML (<3.6); MB/CK RELATIVE INDEX 1.17 (< OR =4)
[2021-11-13 19:25] LABS: ALBUMIN 3.5 GM/DL (3.2-5.2); ALT/SGPT 46 U/L (12-78); BILIRUBIN,DIRECT 0.2 MG/DL (0.0-0.2); BILIRUBIN,TOTAL 0.6 MG/DL (0.2-1.0); BLOOD UREA NITROGEN 16 MG/DL (7-18); CARBON DIOXIDE LEVEL 28 MEQ/L (21-32); CHLORIDE LEVEL 106 MEQ/L (98-107); CREATININE FOR GFR 0.87 MG/DL (0.70-1.30); GLOMERULAR FILTRATION RATE > 60.0 (>49); GLUCOSE, FASTING 139 MG/DL (70-100); POTASSIUM SERUM 3.6 MEQ/L (3.5-5.1); SODIUM LEVEL 139 MEQ/L (136-145); TOTAL PROTEIN 6.9 GM/DL (6.4-8.2)
[2021-11-13 19:45] VITALS: BP 157/64
[2021-11-13] MEDS ORDERED: PRED20TA PO (19:54)
== END 2021-11-13 20:17 | disposition home or self-care (01) ==
LOC: M ED 16:52
DX: J44.1 Chronic obstructive pulmonary disease with (acute) exacerbation (principal); E11.9 Type 2 diabetes mellitus without complications; I10 Essential (primary) hypertension; Z79.51 Long term (current) use of inhaled steroids; Z79.82 Long term (current) use of aspirin; Z79.84 Long term (current) use of oral hypoglycemic drugs; Z79.899 Other long term (current) drug therapy; Z87.891 Personal history of nicotine dependence

== ENCOUNTER 2022-05-07 10:43 | Inpatient (IN) | payer MEDICARE, OTHER ==
[~2022-05-07] VITALS: Ht 172.7 cm; Wt 129.1 kg
[2022-05-07] MEDS: DOXYCYCLINE HYCLATE 100MG TABLET PO SCH ×2 (09:00→22:16)
[2022-05-07 12:13] LABS: BASO % 0.5 % (0.0-1.0); EOS # 0.2 10^3/uL (0.0-0.5); EOS % 2.9 % (0.0-3.0); HEMOGLOBIN 14.3 g/dl (13.5-17.5); LYMPH # 1.2 10^3/uL (1.5-5.0); LYMPH % 19.4 % (24.0-44.0); MEAN CORPUSCULAR HEMOGLOBIN 30.2 pg (27.0-33.0); MEAN CORPUSCULAR VOLUME 88.8 fl (80.0-96.0); MONO # 0.8 10^3/uL (0.0-0.8); MONO % 12.7 % (2.0-8.0); NEUTROPHILS # 3.9 10^3/uL (1.5-8.5); PLATELET COUNT, AUTOMATED 159 10^3/uL (150-450); RED BLOOD COUNT 4.73 10^6/uL (4.30-6.10); WHITE BLOOD COUNT 6.1 10^3/uL (4.0-10.0)
[2022-05-07 12:15] LABS: VENOUS BASE EXCESS -0.6 (-2.0-2.0); VENOUS HCO3 25.5 MEQ/L (23.0-27.0); VENOUS O2 SATURATION 69.4 % (60.0-80.0); VENOUS PARTIAL PRESSURE CO2 47.2 mmHg (38.0-50.0); VENOUS PARTIAL PRESSURE O2 35.9 mmHg (30.0-50.0); VENOUS STANDARD HCO3 23.2 MEQ/L; VENOUS TOTAL CO2 26.9 MEQ/L (24.0-28.0)
[2022-05-07 12:25] LABS: INR 0.98; PROTHROMBIN TIME 13.2 SECONDS (12.5-14.5)
[2022-05-07] MEDS ORDERED: methylPREDNISolone 125MG 2ML VIAL IV ONE (12:25)
[2022-05-07] MEDS ORDERED: FUROSEMIDE 100MG/10ML VIAL IV ONE (12:25)
[2022-05-07] MEDS ORDERED: ACETAMINOPHEN 325 MG TAB PO ONE (12:25)
[2022-05-07 12:39] LABS: CPK CREATINE PHOSPHOKINASE 111 U/L (46-171)
[2022-05-07 12:42] LABS: ALBUMIN 3.8 G/DL (3.2-5.2); ALKALINE PHOSPHATASE 54 U/L (46-116); ALT/SGPT 88 U/L (7.0-40); AST/SGOT 130 U/L (<34); BILIRUBIN,DIRECT 0.4 MG/DL (<0.4); BILIRUBIN,TOTAL 1.1 MG/DL (0.3-1.2); BLOOD UREA NITROGEN 12 MG/DL (9-23); CALCIUM LEVEL 8.8 MG/DL (8.3-10.6); CARBON DIOXIDE LEVEL 27 MMOL/L (20-31); CHLORIDE LEVEL 101 MMOL/L (98-107); CK-MB VALUE MASS < 1.0 NG/ML (<3.6); CREATININE FOR GFR 0.88 MG/DL (0.70-1.30); GLOMERULAR FILTRATION RATE > 60.0 (>49); GLUCOSE, FASTING 149 MG/DL (74-106); POTASSIUM SERUM 3.9 MMOL/L (3.5-5.1); SODIUM LEVEL 137 MMOL/L (136-145); THYROID STIMULATING HORMONE 1.395 uIU/ML (0.55-4.78); TOTAL PROTEIN 6.8 G/DL (5.7-8.2)
[2022-05-07] MEDS ORDERED: NS 1,000 ML IV ONE ×2 (12:50→18:55)
[2022-05-07] MEDS: IPRATROPIUM 0.5MG/ALBUTEROL 2.5MG INH SOL UD 3ML (DUONEB) NEB PRN ×3 (12:59→13:46)
[2022-05-07 14:55] LABS: CK-MB VALUE MASS < 1.0 NG/ML (<3.6)
[2022-05-07 14:57] LABS: CPK CREATINE PHOSPHOKINASE 111 U/L (46-171)
[2022-05-07] MEDS ORDERED: ISOVUE-370 76% 100ML VIAL As Ordered ONE (15:02)
[2022-05-07] MEDS ORDERED: FUROSEMIDE 40MG/4ML VIAL IV SCH ×2 (15:15→17:00)
[2022-05-07] MEDS ORDERED: DEXTROSE 50% 50ML SYRINGE IV PRN (15:20)
[2022-05-07] MEDS ORDERED: IPRATROPIUM 0.5MG/ALBUTEROL 2.5MG INH SOL UD 3ML (DUONEB) NEB PRN (15:20)
[2022-05-07] MEDS ORDERED: GLUCOSE 4GM CHEW TABLET PO PRN (15:20)
[2022-05-07] MEDS ORDERED: GLUCAGON INJ 1MG VIAL SC PRN (15:20)
[2022-05-07] MEDS ORDERED: VITA100093 PO (15:24)
[2022-05-07] MEDS ORDERED: AMLO1TAB25 PO (15:24)
[2022-05-07] MEDS ORDERED: MELO15TA28 PO (15:24)
[2022-05-07] MEDS ORDERED: JARD1TAB3 PO (15:24)
[2022-05-07] MEDS ORDERED: FLUT1BLS4 PO (15:24)
[2022-05-07] MEDS ORDERED: FURO20TA2 PO (15:24)
[2022-05-07] MEDS ORDERED: HOME MED LIST COMPLETE! XX SCH (15:25)
[2022-05-07] MEDS ORDERED: ALBUTEROL 90 MCG/ACT 8GM HFA INHALER INH PRN (15:30)
[2022-05-07] MEDS ORDERED: CEFEPIME HCL 2 GM in D5W MINI-BAG PLUS 50 ML IV SCH (16:00)
[2022-05-07 16:41] LABS: HEPATITIS B SURFACE ANTIGEN NEGATIVE (NEGATIVE)
[2022-05-07 17:01] LABS: HEPATITIS C VIRUS ABY INDEX 0.1 INDEX (<0.8)
[2022-05-07 17:02] LABS: HEPATITIS B CORE ANTIBODY IGM NEGATIVE (NEGATIVE)
[2022-05-07 17:03] VITALS: BP 163/83
[2022-05-07] MEDS: methylPREDNISolone 40MG 1ML VIAL IV SCH ×2 (18:03→22:16)
[2022-05-07] MEDS: cefTRIAXone SOD 1 GM in D5W MINI-BAG PLUS 50 ML IV SCH (18:03)
[2022-05-07] MEDS: INSULIN LISPRO (NovoLOG) PER UNIT SC SCH (18:04)
[2022-05-07] MEDS ORDERED: LEVALBUTEROL 1.25MG 0.5ML CONCENTRATE NEB INH PRN (19:05)
[2022-05-07] MEDS: ADVAIR HFA 115/21MCG INHALER INH SCH (19:33)
[2022-05-07] MEDS: IPRATROPIUM 0.5MG/ALBUTEROL 2.5MG INH SOL UD 3ML (DUONEB) NEB SCH (19:33)
[2022-05-07 20:00] VITALS: O2SAT 91
[2022-05-07 20:22] VITALS: BP 139/60
[2022-05-07 21:00] VITALS: O2SAT 91
[2022-05-07] MEDS ORDERED: INSULIN LISPRO (NovoLOG) PER UNIT SC SCH (21:00)
[2022-05-07] MEDS: THIAMINE INJection 500 MG in NS 100 ML IV SCH (22:16)
[2022-05-07] MEDS: PRAVASTATIN 20 MG TAB PO SCH (22:17)
[2022-05-07 23:00] VITALS: O2SAT 92
[2022-05-08] VITALS (18 sets, daily range): BP systolic 133–168; BP diastolic 60–82; O2SAT 90–93
[2022-05-08 03:51] LABS: HEMATOCRIT 42.6 % (42.0-52.0); HEMOGLOBIN 14.5 g/dl (13.5-17.5); MEAN CORPUSCULAR HEMOGLOBIN 29.5 pg (27.0-33.0); MEAN CORPUSCULAR VOLUME 86.6 fl (80.0-96.0); PLATELET COUNT, AUTOMATED 167 10^3/uL (150-450); RED BLOOD COUNT 4.92 10^6/uL (4.30-6.10); WHITE BLOOD COUNT 7.7 10^3/uL (4.0-10.0)
[2022-05-08 05:31] LABS: ALBUMIN 3.7 G/DL (3.2-5.2); ALKALINE PHOSPHATASE 52 U/L (46-116); ALT/SGPT 80 U/L (7.0-40); AST/SGOT 77 U/L (<34); BILIRUBIN,TOTAL 0.8 MG/DL (0.3-1.2); BLOOD UREA NITROGEN 18 MG/DL (9-23); CALCIUM LEVEL 8.5 MG/DL (8.3-10.6); CARBON DIOXIDE LEVEL 19 MMOL/L (20-31); CHLORIDE LEVEL 103 MMOL/L (98-107); CREATININE FOR GFR 0.81 MG/DL (0.70-1.30); GLOMERULAR FILTRATION RATE > 60.0 (>49); GLUCOSE, FASTING 308 MG/DL (74-106); MAGNESIUM LEVEL 1.4 MG/DL (1.8-2.4); PHOSPHORUS LEVEL 1.8 MG/DL (2.4-5.1); POTASSIUM SERUM 3.9 MMOL/L (3.5-5.1); SODIUM LEVEL 135 MMOL/L (136-145)
[2022-05-08 05:43] LABS: TOTAL PROTEIN 6.9 G/DL (5.7-8.2)
[2022-05-08] MEDS: THIAMINE INJection 500 MG in NS 100 ML IV SCH ×2 (06:15→14:05)
[2022-05-08] MEDS: IPRATROPIUM 0.5MG/ALBUTEROL 2.5MG INH SOL UD 3ML (DUONEB) NEB SCH ×4 (07:28→19:23)
[2022-05-08] MEDS: ADVAIR HFA 115/21MCG INHALER INH SCH ×2 (07:28→19:24)
[2022-05-08] MEDS: ENOXAPARIN 40MG/0.4ML SYRINGE (J1650 PER 10MG) SC SCH (08:40)
[2022-05-08] MEDS: VITAMIN D 1,000 INTERNATIONAL UNITS TABLET PO SCH (08:41)
[2022-05-08] MEDS: INSULIN LISPRO (NovoLOG) PER UNIT SC SCH ×3 (08:41→17:39)
[2022-05-08] MEDS: methylPREDNISolone 40MG 1ML VIAL IV SCH ×2 (08:42→17:33)
[2022-05-08] MEDS: DOXYCYCLINE HYCLATE 100MG TABLET PO SCH ×2 (08:42→20:32)
[2022-05-08] MEDS: amLODIPine 5 MG TAB PO SCH (08:42)
[2022-05-08] MEDS: FUROSEMIDE 40MG/4ML VIAL IV SCH ×2 (08:42→17:33)
[2022-05-08] MEDS: FLUoxetine 20MG CAP PO SCH (08:42)
[2022-05-08] MEDS: guaiFENesin ER 600 MG TAB PO SCH ×2 (10:52→20:32)
[2022-05-08] MEDS: MAG SULF 1GM/100ML (MAG RUN) 1 GM in IV 1 EA IV SCH ×3 (10:52→12:52)
[2022-05-08 11:14] LABS: HEMOGLOBIN A1c 7.1 % (4.0-6.0)
[2022-05-08] MEDS: ACETYLCYSTEINE 20% 4 ML VIAL (200MG/ML) INH SCH ×2 (11:32→19:23)
[2022-05-08] MEDS: cefTRIAXone SOD 1 GM in D5W MINI-BAG PLUS 50 ML IV SCH (17:33)
[2022-05-08] MEDS: LEVEMIR (INSULIN DETEMIR) 1 UNITS/0.01ML SC SCH (17:39)
[2022-05-08] MEDS: PRAVASTATIN 20 MG TAB PO SCH (20:32)
[2022-05-08] MEDS ORDERED: INSULIN LISPRO (NovoLOG) PER UNIT SC SCH (21:00)
[2022-05-08] MEDS ORDERED: NS 1,000 ML IV ONE (22:25)
[2022-05-09] VITALS (23 sets, daily range): BP systolic 124–153; BP diastolic 57–76; O2SAT 88–94
[2022-05-09] MEDS ORDERED: INSULIN LISPRO (NovoLOG) PER UNIT SC ONE ×2 (00:15→14:40)
[2022-05-09] MEDS: methylPREDNISolone 40MG 1ML VIAL IV SCH ×2 (00:21→08:51)
[2022-05-09 04:57] LABS: HEMATOCRIT 39.3 % (42.0-52.0); HEMOGLOBIN 13.3 g/dl (13.5-17.5); MEAN CORPUSCULAR HEMOGLOBIN 29.8 pg (27.0-33.0); MEAN CORPUSCULAR HGB CONC 33.8 g/dl (32.0-36.5); MEAN CORPUSCULAR VOLUME 88.1 fl (80.0-96.0); PLATELET COUNT, AUTOMATED 164 10^3/uL (150-450); RED BLOOD COUNT 4.46 10^6/uL (4.30-6.10); WHITE BLOOD COUNT 10.8 10^3/uL (4.0-10.0)
[2022-05-09 05:28] LABS: ALBUMIN 3.4 G/DL (3.2-5.2); ALKALINE PHOSPHATASE 55 U/L (46-116); ALT/SGPT 61 U/L (7.0-40); AST/SGOT 42 U/L (<34); BILIRUBIN,TOTAL 0.4 MG/DL (0.3-1.2); BLOOD UREA NITROGEN 30 MG/DL (9-23); CALCIUM LEVEL 8.8 MG/DL (8.3-10.6); CARBON DIOXIDE LEVEL 24 MMOL/L (20-31); CHLORIDE LEVEL 106 MMOL/L (98-107); GLOMERULAR FILTRATION RATE > 60.0 (>49); GLUCOSE, FASTING 370 MG/DL (74-106); POTASSIUM SERUM 3.9 MMOL/L (3.5-5.1); SODIUM LEVEL 139 MMOL/L (136-145); TOTAL PROTEIN 6.3 G/DL (5.7-8.2)
[2022-05-09] MEDS: ACETYLCYSTEINE 20% 4 ML VIAL (200MG/ML) INH SCH ×2 (07:40→20:08)
[2022-05-09] MEDS: IPRATROPIUM 0.5MG/ALBUTEROL 2.5MG INH SOL UD 3ML (DUONEB) NEB SCH ×4 (07:40→20:08)
[2022-05-09] MEDS: ADVAIR HFA 115/21MCG INHALER INH SCH ×2 (07:40→20:08)
[2022-05-09] MEDS: FUROSEMIDE 40MG/4ML VIAL IV SCH ×2 (08:48→17:45)
[2022-05-09] MEDS: ENOXAPARIN 40MG/0.4ML SYRINGE (J1650 PER 10MG) SC SCH (08:48)
[2022-05-09] MEDS: LEVEMIR (INSULIN DETEMIR) 1 UNITS/0.01ML SC SCH ×2 (08:49→20:32)
[2022-05-09] MEDS: INSULIN LISPRO (NovoLOG) PER UNIT SC SCH ×4 (08:49→23:50)
[2022-05-09] MEDS: amLODIPine 5 MG TAB PO SCH (08:50)
[2022-05-09] MEDS: FLUoxetine 20MG CAP PO SCH (08:50)
[2022-05-09] MEDS: VITAMIN D 1,000 INTERNATIONAL UNITS TABLET PO SCH (08:50)
[2022-05-09] MEDS: DOXYCYCLINE HYCLATE 100MG TABLET PO SCH ×2 (08:50→20:32)
[2022-05-09] MEDS: guaiFENesin ER 600 MG TAB PO SCH ×2 (08:50→20:32)
[2022-05-09] MEDS: predniSONE 20 MG TAB PO SCH (09:00)
[2022-05-09] MEDS ORDERED: CEFDINIR 300 MG CAP (OMNICEF) PO SCH (09:00)
[2022-05-09] MEDS ORDERED: PRED10TA2 PO (09:29)
[2022-05-09] MEDS ORDERED: TREL1AER PO (09:29)
[2022-05-09] MEDS ORDERED: IPRA0.00 INH (09:32)
[2022-05-09] MEDS ORDERED: PRED20TA PO (09:32)
[2022-05-09] MEDS ORDERED: ALBU8.5H INH (09:32)
[2022-05-09] MEDS ORDERED: INSULIN LISPRO (NovoLOG) PER UNIT SC STA (12:31)
[2022-05-09] MEDS ORDERED: DOXY100T PO (12:34)
[2022-05-09] MEDS ORDERED: CEFP200T PO (12:34)
[2022-05-09] MEDS: PRAVASTATIN 20 MG TAB PO SCH (20:32)
[2022-05-10 04:07] VITALS: BP 142/64
[2022-05-10 04:44] LABS: HEMATOCRIT 38.4 % (42.0-52.0); HEMOGLOBIN 13.2 g/dl (13.5-17.5); MEAN CORPUSCULAR HGB CONC 34.4 g/dl (32.0-36.5); MEAN CORPUSCULAR VOLUME 87.3 fl (80.0-96.0); PLATELET COUNT, AUTOMATED 184 10^3/uL (150-450); WHITE BLOOD COUNT 13.4 10^3/uL (4.0-10.0)
[2022-05-10 05:05] LABS: ALBUMIN 3.4 G/DL (3.2-5.2); ALKALINE PHOSPHATASE 71 U/L (46-116); ALT/SGPT 58 U/L (7.0-40); AST/SGOT 41 U/L (<34); BILIRUBIN,TOTAL 0.5 MG/DL (0.3-1.2); BLOOD UREA NITROGEN 33 MG/DL (9-23); CARBON DIOXIDE LEVEL 24 MMOL/L (20-31); CHLORIDE LEVEL 101 MMOL/L (98-107); GLOMERULAR FILTRATION RATE > 60.0 (>49); GLUCOSE, FASTING 389 MG/DL (74-106); POTASSIUM SERUM 3.2 MMOL/L (3.5-5.1); SODIUM LEVEL 137 MMOL/L (136-145); TOTAL PROTEIN 6.2 G/DL (5.7-8.2)
[2022-05-10] MEDS: INSULIN LISPRO (NovoLOG) PER UNIT SC SCH ×2 (05:13→12:33)
[2022-05-10] MEDS ORDERED: INSULIN LISPRO (NovoLOG) PER UNIT SC ONE (06:15)
[2022-05-10 07:49] LABS: MAGNESIUM LEVEL 1.9 MG/DL (1.8-2.4)
[2022-05-10] MEDS ORDERED: POTASSIUM CHLORIDE 10MEQ SR TABLET PO ONE ×2 (08:00→08:30)
[2022-05-10 08:05] VITALS: BP 146/73
[2022-05-10] MEDS: ENOXAPARIN 40MG/0.4ML SYRINGE (J1650 PER 10MG) SC SCH (08:44)
[2022-05-10] MEDS: FUROSEMIDE 40MG/4ML VIAL IV SCH (08:44)
[2022-05-10] MEDS: LEVEMIR (INSULIN DETEMIR) 1 UNITS/0.01ML SC SCH (08:45)
[2022-05-10 08:46] VITALS: BP 146/73
[2022-05-10] MEDS: predniSONE 20 MG TAB PO SCH (08:46)
[2022-05-10] MEDS: DOXYCYCLINE HYCLATE 100MG TABLET PO SCH (08:46)
[2022-05-10] MEDS: FLUoxetine 20MG CAP PO SCH (08:46)
[2022-05-10] MEDS: amLODIPine 5 MG TAB PO SCH (08:46)
[2022-05-10] MEDS: VITAMIN D 1,000 INTERNATIONAL UNITS TABLET PO SCH (08:47)
[2022-05-10] MEDS: IPRATROPIUM 0.5MG/ALBUTEROL 2.5MG INH SOL UD 3ML (DUONEB) NEB SCH ×2 (09:01→11:51)
[2022-05-10] MEDS: ACETYLCYSTEINE 20% 4 ML VIAL (200MG/ML) INH SCH (09:02)
[2022-05-10] MEDS: ADVAIR HFA 115/21MCG INHALER INH SCH (09:02)
[2022-05-10] MEDS: guaiFENesin ER 600 MG TAB PO SCH (10:19)
== END 2022-05-10 13:38 | disposition home health service (06) | DRG 189 ==
LOC: M ED 10:43 → M ED INP 14:36 → ENRESERV 15:37 → M PCU 16:50
PROVIDERS: ADMIT Internal Medicine; ATTEND Internal Medicine
PROC: B246ZZZ Ultrasonography of Right and Left Heart (ICD-10-PCS; principal; 2022-05-09)
DX: J96.21 Acute and chronic respiratory failure with hypoxia (principal); J18.9 Pneumonia, unspecified organism; J44.1 Chronic obstructive pulmonary disease with (acute) exacerbation; J44.0 Chronic obstructive pulmonary disease with (acute) lower respiratory infection; E87.20 Acidosis, unspecified; N12 Tubulo-interstitial nephritis, not specified as acute or chronic; Z68.41 Body mass index [BMI] 40.0-44.9, adult; I10 Essential (primary) hypertension; E78.00 Pure hypercholesterolemia, unspecified; E11.9 Type 2 diabetes mellitus without complications; G47.33 Obstructive sleep apnea (adult) (pediatric); K52.9 Noninfective gastroenteritis and colitis, unspecified; R74.01 Elevation of levels of liver transaminase levels; F39 Unspecified mood [affective] disorder; E66.9 Obesity, unspecified; K76.89 Other specified diseases of liver; Z87.891 Personal history of nicotine dependence; Z79.1 Long term (current) use of non-steroidal anti-inflammatories (NSAID); Z90.49 Acquired absence of other specified parts of digestive tract; Z79.84 Long term (current) use of oral hypoglycemic drugs; Z79.899 Other long term (current) drug therapy

== ENCOUNTER 2022-11-16 12:48 | Inpatient (IN) | payer MEDICARE, OTHER ==
[~2022-11-16] VITALS: Ht 170.2 cm; Wt 120.8 kg
[~2022-11-16 12:48] MED LIST changes: +ALBU8.5H INH; +AMLO1TAB25 PO; +CEFP200T PO; +DOXY100T PO; +FLUT1BLS4 PO; +IPRA0.00 INH; +JARD1TAB3 PO; -K-TA10TA2 PO; +MELO15TA28 PO; +POTA-165 PO; +POTA-298 PO; -POTA1TAB14 PO; +PRED10TA2 PO; +TREL1AER PO; +VITA100093 PO
[2022-11-16] MEDS ORDERED: CHARCOAL ACTIVATED LIQUID 25GM/120ML BTL PO ONE (13:30)
[2022-11-16 13:48] LABS: VENOUS BASE EXCESS 1.1 (-2.0-2.0); VENOUS HCO3 27.4 MMOL/L (23.0-27.0); VENOUS O2 SATURATION 80.1 % (60.0-80.0); VENOUS PARTIAL PRESSURE CO2 49.4 mmHg (38.0-50.0); VENOUS PARTIAL PRESSURE O2 41.7 mmHg (30.0-50.0); VENOUS PH 7.362 UNITS (7.330-7.430); VENOUS TOTAL CO2 28.9 MMOL/L (24.0-28.0)
[2022-11-16 13:58] LABS: BASO % 0.5 % (0.0-1.0); EOS # 0.3 10^3/uL (0.0-0.5); EOS % 4.4 % (0.0-3.0); HEMOGLOBIN 15.3 g/dl (13.5-17.5); LYMPH # 1.5 10^3/uL (1.5-5.0); LYMPH % 20.1 % (24.0-44.0); MEAN CORPUSCULAR HEMOGLOBIN 29.3 pg (27.0-33.0); MEAN CORPUSCULAR HGB CONC 33.3 g/dl (32.0-36.5); MONO # 0.5 10^3/uL (0.0-0.8); MONO % 6.6 % (2.0-8.0); NEUTROPHILS # 5.2 10^3/uL (1.5-8.5); NEUTROPHILS % 67.5 % (36.0-66.0); PLATELET COUNT, AUTOMATED 186 10^3/uL (150-450); RED BLOOD COUNT 5.23 10^6/uL (4.30-6.10); WHITE BLOOD COUNT 7.7 10^3/uL (4.0-10.0)
[2022-11-16 14:14] LABS: OSMOLALITY SERUM 305 MOSM/KG (280-301)
[2022-11-16 14:16] LABS: ETHYL ALCOHOL (ETHANOL) < 0.003 % (0.000-0.010)
[2022-11-16 14:17] LABS: ACETAMINOPHEN LEVEL < 2.0 UG/ML (10.0-20.0); CPK CREATINE PHOSPHOKINASE 104 U/L (46-171)
[2022-11-16 14:18] LABS: ALKALINE PHOSPHATASE 53 U/L (46-116); ALT/SGPT 58 U/L (7.0-40); AST/SGOT 52 U/L (<34); BILIRUBIN,DIRECT 0.3 MG/DL (<0.4); BILIRUBIN,TOTAL 0.8 MG/DL (0.3-1.2); BLOOD UREA NITROGEN 18 MG/DL (9-23); CALCIUM LEVEL 9.2 MG/DL (8.3-10.6); CARBON DIOXIDE LEVEL 27 MMOL/L (20-31); CHLORIDE LEVEL 107 MMOL/L (98-107); CREATININE FOR GFR 0.86 MG/DL (0.70-1.30); GLOMERULAR FILTRATION RATE > 60.0 (>49); GLUCOSE, FASTING 159 MG/DL (74-106); SALICYLATE LEVEL < 3.0 MG/DL (<30); SODIUM LEVEL 141 MMOL/L (136-145); TOTAL PROTEIN 7.2 G/DL (5.7-8.2)
[2022-11-16 14:20] LABS: THYROID STIMULATING HORMONE 1.435 uIU/ML (0.55-4.78)
[2022-11-16 14:28] LABS: AMPHETAMINES LEVEL URINE NEGATIVE (NEGATIVE); BARBITURATES URINE NEGATIVE (NEGATIVE); BENZODIAZEPINES URINE NEGATIVE (NEGATIVE); CANNABINOIDS URINE NEGATIVE (NEGATIVE); COCAINE METABOLITE URINE NEGATIVE (NEGATIVE); METHADONE URINE NEGATIVE (NEGATIVE); OPIATES URINE NEGATIVE (NEGATIVE); PHENCYCLIDINE URINE NEGATIVE (NEGATIVE)
[2022-11-16 14:29] LABS: RSV AMPLIFICATION NEGATIVE (NEGATIVE)
[2022-11-16 16:25] LABS: CK-MB VALUE MASS 1.4 NG/ML (<3.6); LIPASE 30 U/L (12-53); MB/CK RELATIVE INDEX 1.34 (< OR =4)
[2022-11-16 17:53] LABS: CK-MB VALUE MASS 1.7 NG/ML (<3.6)
[2022-11-16 17:55] LABS: MB/CK RELATIVE INDEX 1.55 (< OR =4)
[2022-11-16] MEDS ORDERED: ACETAMINOPHEN TAB 650MG DOSE (2X325MG) PO ONE (20:15)
[2022-11-16 21:07] LABS: ALBUMIN 4.5 G/DL (3.2-5.2); ALKALINE PHOSPHATASE 56 U/L (46-116); ALT/SGPT 66 U/L (7.0-40); AST/SGOT 63 U/L (<34); BILIRUBIN,DIRECT 0.4 MG/DL (<0.4); BILIRUBIN,TOTAL 1.2 MG/DL (0.3-1.2); BLOOD UREA NITROGEN 18 MG/DL (9-23); CALCIUM LEVEL 9.8 MG/DL (8.3-10.6); CARBON DIOXIDE LEVEL 29 MMOL/L (20-31); CHLORIDE LEVEL 102 MMOL/L (98-107); CREATININE FOR GFR 0.98 MG/DL (0.70-1.30); GLOMERULAR FILTRATION RATE > 60.0 (>49); GLUCOSE, FASTING 161 MG/DL (74-106); POTASSIUM SERUM 3.7 MMOL/L (3.5-5.1); SODIUM LEVEL 140 MMOL/L (136-145); TOTAL PROTEIN 7.8 G/DL (5.7-8.2)
[2022-11-16 22:05] LABS: BLOOD UREA NITROGEN 18 MG/DL (9-23); CALCIUM LEVEL 9.3 MG/DL (8.3-10.6); CARBON DIOXIDE LEVEL 28 MMOL/L (20-31); CHLORIDE LEVEL 102 MMOL/L (98-107); CREATININE FOR GFR 0.95 MG/DL (0.70-1.30); GLOMERULAR FILTRATION RATE > 60.0 (>49); GLUCOSE, FASTING 150 MG/DL (74-106); MAGNESIUM LEVEL 1.8 MG/DL (1.8-2.4); POTASSIUM SERUM 3.2 MMOL/L (3.5-5.1); SODIUM LEVEL 142 MMOL/L (136-145)
[2022-11-16] MEDS ORDERED: NS 1,000 ML IV ONE (22:15)
[2022-11-17 02:56] LABS: ALBUMIN 3.7 G/DL (3.2-5.2); BILIRUBIN,DIRECT 0.2 MG/DL (<0.4); BILIRUBIN,TOTAL 0.8 MG/DL (0.3-1.2); TOTAL PROTEIN 6.4 G/DL (5.7-8.2)
[2022-11-17] MEDS ORDERED: SPIR1AER IN (05:48)
[2022-11-17] MEDS ORDERED: FAMO1TAB11 PO (05:48)
[2022-11-17] MEDS ORDERED: OMEP-173 PO (05:48)
[2022-11-17] MEDS ORDERED: HOME MED LIST COMPLETE! XX SCH (05:50)
[2022-11-17] MEDS: TIOTROPIUM INHALER/CAPSULE (SPIRIVA) INH SCH (08:00)
[2022-11-17 09:49] LABS: APPEARANCE, URINE CLEAR (CLEAR); BACTERIA, URINE AUTO NEGATIVE (NEGATIVE); BILIRUBIN, URINE AUTO NEGATIVE (NEGATIVE); BLOOD, URINE BLOOD NEGATIVE (NEGATIVE); COLOR, URINE YELLOW (YELLOW); GLUCOSE, URINE (UA) AUTO 3+ mg/dL (NEGATIVE); KETONE, URINE AUTO TRACE mg/dL (NEGATIVE); LEUKOCYTE ESTERASE, URINE AUTO NEGATIVE (NEGATIVE); NITRITE, URINE AUTO NEGATIVE (NEGATIVE); PROTEIN, URINE AUTO NEGATIVE (NEGATIVE); RBC, URINE AUTO 0 /HPF (0-3); SPECIFIC GRAVITY URINE AUTO 1.017 (1.002-1.035); SQUAMOUS EPITHELIAL CELL UR AU 0 /HPF (0-6); UROBILINOGEN, URINE AUTO 0.2 mg/dL (0.0-2.0); WBC, URINE AUTO 0 /HPF (0-3)
[2022-11-17] MEDS ORDERED: ACETAMINOPHEN TAB 650MG DOSE (2X325MG) PO ONE (11:50)
[2022-11-17] MEDS ORDERED: ALBUTEROL 90 MCG/ACT 8GM HFA INHALER INH PRN (15:35)
[2022-11-17] MEDS: FLUoxetine 20MG CAP PO SCH (15:55)
[2022-11-17] MEDS: OMEPRAZOLE 20MG CAP PO SCH (15:55)
[2022-11-17] MEDS: amLODIPine 5 MG TAB PO SCH (15:55)
[2022-11-17] MEDS: PRAVASTATIN 20 MG TAB PO SCH (22:02)
[2022-11-17] MEDS: metFORMIN (GLUCOPHAGE) 1000MG TABLET PO SCH (22:02)
[2022-11-18] MEDS: FLUoxetine 20MG CAP PO SCH (09:17)
[2022-11-18] MEDS: amLODIPine 5 MG TAB PO SCH (09:17)
[2022-11-18] MEDS: OMEPRAZOLE 20MG CAP PO SCH (09:17)
[2022-11-18] MEDS: metFORMIN (GLUCOPHAGE) 1000MG TABLET PO SCH ×2 (09:17→20:59)
[2022-11-18] MEDS: TIOTROPIUM INHALER/CAPSULE (SPIRIVA) INH SCH (10:13)
[2022-11-18] MEDS: PRAVASTATIN 20 MG TAB PO SCH (21:00)
[2022-11-19] MEDS: metFORMIN (GLUCOPHAGE) 1000MG TABLET PO SCH ×2 (08:53→17:23)
[2022-11-19] MEDS: amLODIPine 5 MG TAB PO SCH (08:53)
[2022-11-19] MEDS: FLUoxetine 20MG CAP PO SCH (08:53)
[2022-11-19] MEDS: OMEPRAZOLE 20MG CAP PO SCH (08:53)
[2022-11-19] MEDS ORDERED: MAALOX 30 ML SUSP *UDC PO PRN (15:00)
[2022-11-19] MEDS ORDERED: traZODone 50 MG TAB PO PRN (15:00)
[2022-11-19] MEDS ORDERED: IBUPROFEN 400MG TAB PO PRN (15:00)
[2022-11-19] MEDS ORDERED: diphenhydrAMINE 25MG CAP PO PRN (15:00)
[2022-11-19] MEDS ORDERED: MOM 30ML SUSPENSION UDC PO PRN (15:00)
[2022-11-19] MEDS ORDERED: ACETAMINOPHEN TAB 650MG DOSE (2X325MG) PO PRN (15:00)
[2022-11-19] MEDS ORDERED: ALBUTEROL 90 MCG/ACT 8GM HFA INHALER INH PRN (15:45)
[2022-11-19 15:55] VITALS: BP 144/69; TEMP 97.9; O2SAT 94
[2022-11-19] MEDS: POTASSIUM CHLORIDE 10MEQ SR TABLET PO SCH (20:36)
[2022-11-19] MEDS: PRAVASTATIN 20 MG TAB PO SCH (20:36)
[2022-11-20 06:55] VITALS: BP 166/84; TEMP 97.4; O2SAT 97
[2022-11-20] MEDS: MELOXICAM (MOBIC) 7.5 MG TAB PO SCH (08:19)
[2022-11-20] MEDS: FLUoxetine 20MG CAP PO SCH (08:20)
[2022-11-20] MEDS: FAMOTIDINE 20 MG TAB PO SCH (08:20)
[2022-11-20] MEDS: VITAMIN D 1,000 INTERNATIONAL UNITS TABLET PO SCH (08:20)
[2022-11-20] MEDS: OMEPRAZOLE 20MG CAP PO SCH (08:20)
[2022-11-20] MEDS: metFORMIN (GLUCOPHAGE) 1000MG TABLET PO SCH ×2 (08:20→17:25)
[2022-11-20] MEDS: amLODIPine 5 MG TAB PO SCH (08:21)
[2022-11-20] MEDS: POTASSIUM CHLORIDE 10MEQ SR TABLET PO SCH ×2 (08:21→20:16)
[2022-11-20] MEDS: TIOTROPIUM INHALER/CAPSULE (SPIRIVA) INH SCH (08:21)
[2022-11-20 16:03] VITALS: BP 145/70; TEMP 97.9; O2SAT 98
[2022-11-20] MEDS ORDERED: FUROSEMIDE 20 MG TAB PO SCH (17:00)
[2022-11-20] MEDS: PRAVASTATIN 20 MG TAB PO SCH (20:47)
[2022-11-21] MEDS: FUROSEMIDE 20 MG TAB PO SCH ×2 (06:04→13:02)
[2022-11-21 06:38] VITALS: BP 162/84; TEMP 98.7; O2SAT 95
[2022-11-21] MEDS: TIOTROPIUM INHALER/CAPSULE (SPIRIVA) INH SCH (08:37)
[2022-11-21] MEDS: OMEPRAZOLE 20MG CAP PO SCH (08:37)
[2022-11-21] MEDS: FLUoxetine 20MG CAP PO SCH (08:38)
[2022-11-21] MEDS: VITAMIN D 1,000 INTERNATIONAL UNITS TABLET PO SCH (08:38)
[2022-11-21] MEDS: metFORMIN (GLUCOPHAGE) 1000MG TABLET PO SCH ×2 (08:38→17:10)
[2022-11-21] MEDS: FAMOTIDINE 20 MG TAB PO SCH (08:38)
[2022-11-21] MEDS: MELOXICAM (MOBIC) 7.5 MG TAB PO SCH (08:38)
[2022-11-21] MEDS: POTASSIUM CHLORIDE 10MEQ SR TABLET PO SCH ×2 (08:38→20:35)
[2022-11-21] MEDS: amLODIPine 5 MG TAB PO SCH (08:39)
[2022-11-21] MEDS ORDERED: FLUoxetine 20MG CAP PO ONE (11:45)
[2022-11-21 16:14] VITALS: BP 127/60; TEMP 98.3; O2SAT 98
[2022-11-21] MEDS: PRAVASTATIN 20 MG TAB PO SCH (20:35)
[2022-11-22] MEDS: FUROSEMIDE 20 MG TAB PO SCH ×2 (05:34→13:15)
[2022-11-22 06:45] VITALS: BP 143/63; TEMP 99; O2SAT 95
[2022-11-22 08:27] VITALS: BP 139/69
[2022-11-22] MEDS: amLODIPine 5 MG TAB PO SCH (08:30)
[2022-11-22] MEDS: FLUoxetine 20MG CAP PO SCH (08:30)
[2022-11-22] MEDS: OMEPRAZOLE 20MG CAP PO SCH (08:30)
[2022-11-22] MEDS: FAMOTIDINE 20 MG TAB PO SCH (08:30)
[2022-11-22] MEDS: TIOTROPIUM INHALER/CAPSULE (SPIRIVA) INH SCH (08:30)
[2022-11-22] MEDS: MELOXICAM (MOBIC) 7.5 MG TAB PO SCH (08:30)
[2022-11-22] MEDS: VITAMIN D 1,000 INTERNATIONAL UNITS TABLET PO SCH (08:30)
[2022-11-22] MEDS: POTASSIUM CHLORIDE 10MEQ SR TABLET PO SCH ×2 (08:30→20:15)
[2022-11-22] MEDS: metFORMIN (GLUCOPHAGE) 1000MG TABLET PO SCH ×2 (08:30→17:18)
[2022-11-22] MEDS ORDERED: FLUO40CA PO (10:22)
[2022-11-22 18:17] VITALS: BP_SYST 148; BP_SYST 181; BP_DIAS 82; BP_DIAS 84; TEMP 97.2
[2022-11-22] MEDS: PRAVASTATIN 20 MG TAB PO SCH (20:15)
[2022-11-23] MEDS: FUROSEMIDE 20 MG TAB PO SCH (04:58)
[2022-11-23 05:54] VITALS: BP 154/70; TEMP 97.1; O2SAT 97
[2022-11-23] MEDS: VITAMIN D 1,000 INTERNATIONAL UNITS TABLET PO SCH (08:50)
[2022-11-23] MEDS: metFORMIN (GLUCOPHAGE) 1000MG TABLET PO SCH (08:50)
[2022-11-23] MEDS: FLUoxetine 20MG CAP PO SCH (08:50)
[2022-11-23] MEDS: OMEPRAZOLE 20MG CAP PO SCH (08:50)
[2022-11-23] MEDS: MELOXICAM (MOBIC) 7.5 MG TAB PO SCH (08:50)
[2022-11-23] MEDS: POTASSIUM CHLORIDE 10MEQ SR TABLET PO SCH (08:50)
[2022-11-23] MEDS: TIOTROPIUM INHALER/CAPSULE (SPIRIVA) INH SCH (08:50)
[2022-11-23] MEDS: FAMOTIDINE 20 MG TAB PO SCH (08:50)
[2022-11-23 08:52] VITALS: BP 143/79
[2022-11-23] MEDS: amLODIPine 5 MG TAB PO SCH (08:52)
== END 2022-11-23 12:53 | disposition home or self-care (01) | DRG 885 ==
LOC: M ED 12:48 → M ED INP 11-19 15:00 → M PSY 11-19 15:52
PROVIDERS: ADMIT Student in an Organized Health Care Education/Training Program; ATTEND Student in an Organized Health Care Education/Training Program
DX: F33.1 Major depressive disorder, recurrent, moderate (principal); T50.1X2A Poisoning by loop [high-ceiling] diuretics, intentional self-harm, initial encounter; Z91.51 Personal history of suicidal behavior; E66.01 Morbid (severe) obesity due to excess calories; G47.33 Obstructive sleep apnea (adult) (pediatric); M54.50 Low back pain, unspecified; G89.29 Other chronic pain; M77.32 Calcaneal spur, left foot; J44.9 Chronic obstructive pulmonary disease, unspecified; E11.9 Type 2 diabetes mellitus without complications; E78.5 Hyperlipidemia, unspecified; I10 Essential (primary) hypertension; E55.9 Vitamin D deficiency, unspecified; Z90.49 Acquired absence of other specified parts of digestive tract; Z87.891 Personal history of nicotine dependence; K21.9 Gastro-esophageal reflux disease without esophagitis; M25.561 Pain in right knee; M25.562 Pain in left knee; Z79.84 Long term (current) use of oral hypoglycemic drugs; Z79.1 Long term (current) use of non-steroidal anti-inflammatories (NSAID); Z79.899 Other long term (current) drug therapy; Z56.4 Discord with boss and workmates

== ENCOUNTER → 2023-04-10 | Outpatient (CLI) | payer MEDICARE, OTHER ==
[~2023-04-10] MED LIST changes: +FAMO1TAB11 PO; +FLUO40CA PO; +OMEP-173 PO; +SPIR1AER IN
== END ==
LOC: M RAD 10:03
PROVIDERS: ATTEND Internal Medicine Pulmonary Disease
DX: R91.1 Solitary pulmonary nodule (principal)

== ENCOUNTER 2023-04-18 09:03 | Observation (INO) | payer MEDICARE, OTHER ==
[~2023-04-18] VITALS: Ht 172.7 cm; Wt 135.8 kg
[~2023-04-18 09:03] MED LIST changes: -SPIR1AER IN; +SPIR1AER INH
[2023-04-18] MEDS: ACETAMINOPHEN 500 MG TAB PO ONE (09:50)
[2023-04-18 10:01] LABS: VENOUS BASE EXCESS -3.8 (-2.0-2.0); VENOUS O2 SATURATION 61.4 % (60.0-80.0); VENOUS PARTIAL PRESSURE CO2 53.9 mmHg (38.0-50.0); VENOUS PARTIAL PRESSURE O2 33.5 mmHg (30.0-50.0); VENOUS PH 7.266 UNITS (7.330-7.430); VENOUS STANDARD HCO3 20.4 MMOL/L; VENOUS TOTAL CO2 25.6 MMOL/L (24.0-28.0)
[2023-04-18 10:09] LABS: BASO % 0.4 % (0.0-1.0); EOS # 0.2 10^3/uL (0.0-0.5); EOS % 2.3 % (0.0-3.0); HEMATOCRIT 46.2 % (42.0-52.0); HEMOGLOBIN 15.2 g/dl (13.5-17.5); LYMPH # 0.9 10^3/uL (1.5-5.0); LYMPH % 9.6 % (24.0-44.0); MEAN CORPUSCULAR HEMOGLOBIN 29.4 pg (27.0-33.0); MEAN CORPUSCULAR HGB CONC 32.9 g/dl (32.0-36.5); MEAN CORPUSCULAR VOLUME 89.4 fl (80.0-96.0); MONO # 0.6 10^3/uL (0.0-0.8); NEUTROPHILS # 7.6 10^3/uL (1.5-8.5); NEUTROPHILS % 81.2 % (36.0-66.0); PLATELET COUNT, AUTOMATED 153 10^3/uL (150-450); RED BLOOD COUNT 5.17 10^6/uL (4.30-6.10); WHITE BLOOD COUNT 9.4 10^3/uL (4.0-10.0)
[2023-04-18] MEDS: IPRATROPIUM 0.5MG/ALBUTEROL 2.5MG INH SOL UD 3ML (DUONEB) NEB PRN (10:20)
[2023-04-18 10:22] LABS: INR 1.11
[2023-04-18 10:28] LABS: CK-MB VALUE MASS 1.9 NG/ML (<3.6)
[2023-04-18 10:31] LABS: ALBUMIN 4.1 G/DL (3.2-5.2); ALKALINE PHOSPHATASE 56 U/L (46-116); ALT/SGPT 71 U/L (7.0-40); AST/SGOT 77 U/L (<34); BILIRUBIN,DIRECT 0.4 MG/DL (<0.4); BILIRUBIN,TOTAL 1.2 MG/DL (0.3-1.2); BLOOD UREA NITROGEN 16 MG/DL (9-23); CALCIUM LEVEL 8.3 MG/DL (8.3-10.6); CARBON DIOXIDE LEVEL 23 MMOL/L (20-31); CHLORIDE LEVEL 106 MMOL/L (98-107); CREATININE FOR GFR 0.77 MG/DL (0.70-1.30); GLOMERULAR FILTRATION RATE > 60.0 (>49); GLUCOSE, FASTING 213 MG/DL (74-106); POTASSIUM SERUM 3.8 MMOL/L (3.5-5.1); SODIUM LEVEL 140 MMOL/L (136-145)
[2023-04-18 10:35] LABS: CPK CREATINE PHOSPHOKINASE 207 U/L (46-171); MB/CK RELATIVE INDEX 0.91 (< OR =4)
[2023-04-18] MEDS ORDERED: FLUO40CA PO (10:43)
[2023-04-18] MEDS: NS IV ONE (10:51)
[2023-04-18] MEDS ORDERED: AMLO1TAB24 PO (10:52)
[2023-04-18] MEDS ORDERED: HOME MED LIST COMPLETE! XX SCH (10:55)
[2023-04-18] MEDS ORDERED: ISOVUE-370 76% 100ML VIAL As Ordered ONE (10:58)
[2023-04-18] MEDS: cefTRIAXone SOD 2 GM in D5W MINI-BAG PLUS 50 ML IV ONE (11:10)
[2023-04-18 11:42] LABS: ABG BASE EXCESS -1.7 (-2.0-2.0); ABG HCO3 21.3 MMOL/L (22.0-26.0); ABG O2 SATURATION 95.9 % (95.0-99.0); ABG PARTIAL PRESSURE CO2 31.4 mmHg (35.0-45.0); ABG PARTIAL PRESSURE O2 75.5 mmHg (75.0-100.0); ABG STANDARD HCO3 23.1 MMOL/L. (22.0-26.0); ABG TOTAL CO2 22.2 MMOL/L (23.0-31.0); ABG pH (ARTERIAL) 7.449 UNITS (7.350-7.450)
[2023-04-18 13:33] VITALS: O2SAT 94
[2023-04-18] MEDS ORDERED: GLUCOSE 4GM CHEW TABLET PO PRN (15:35)
[2023-04-18] MEDS ORDERED: GLUCAGON INJ 1MG VIAL SC PRN (15:35)
[2023-04-18] MEDS ORDERED: DEXTROSE 50% 50ML SYRINGE IV PRN (15:35)
[2023-04-18] MEDS ORDERED: IPRATROPIUM 0.5MG/ALBUTEROL 2.5MG INH SOL UD 3ML (DUONEB) NEB SCH (16:00)
[2023-04-18 16:41] LABS: PROCALCITONIN 0.17 ng/ml
[2023-04-18] MEDS: amLODIPine 5 MG TAB PO SCH (17:06)
[2023-04-18] MEDS: NS 1,000 ML IV SCH (17:06)
[2023-04-18] MEDS: FAMOTIDINE 20 MG TAB PO SCH (17:07)
[2023-04-18] MEDS: VITAMIN D 1,000 INTERNATIONAL UNITS TABLET PO SCH (17:07)
[2023-04-18] MEDS: FLUoxetine 20MG CAP PO SCH (17:07)
[2023-04-18 17:11] VITALS: BP 180/83; TEMP 99; O2SAT 94
[2023-04-18] MEDS: INSULIN LISPRO (NovoLOG) PER UNIT SC SCH ×2 (18:13→20:19)
[2023-04-18] MEDS: COMBIVENT RESPIMAT 100-20MCG INHALER 4GM INH SCH (19:13)
[2023-04-18] MEDS: REMDESIVIR 200 MG in NS 250 ML IV ONE (20:02)
[2023-04-18 20:04] VITALS: BP 143/78; TEMP 100.5; O2SAT 92
[2023-04-18] MEDS: ENOXAPARIN 40MG/0.4ML SYRINGE (J1650 PER 10MG) SC SCH (20:04)
[2023-04-18] MEDS: ACETAMINOPHEN TAB 650MG DOSE (2X325MG) PO PRN (20:12)
[2023-04-18] MEDS: NS 500 ML IV ONE (20:27)
[2023-04-18] MEDS ORDERED: PRAVASTATIN 20 MG TAB PO SCH (21:00)
[2023-04-19 01:20] VITALS: BP 148/71; TEMP 99.1; O2SAT 95
[2023-04-19 04:37] VITALS: BP 158/84; TEMP 97.9; O2SAT 93
[2023-04-19 06:46] LABS: HEMATOCRIT 37.9 % (42.0-52.0); MEAN CORPUSCULAR HEMOGLOBIN 30.1 pg (27.0-33.0); MEAN CORPUSCULAR HGB CONC 34.3 g/dl (32.0-36.5); MEAN CORPUSCULAR VOLUME 87.7 fl (80.0-96.0); PLATELET COUNT, AUTOMATED 160 10^3/uL (150-450); RED BLOOD COUNT 4.32 10^6/uL (4.30-6.10); WHITE BLOOD COUNT 6.7 10^3/uL (4.0-10.0)
[2023-04-19 07:09] LABS: ALBUMIN 3.3 G/DL (3.2-5.2); ALKALINE PHOSPHATASE 50 U/L (46-116); ALT/SGPT 64 U/L (7.0-40); AST/SGOT 61 U/L (<34); BILIRUBIN,TOTAL 0.5 MG/DL (0.3-1.2); BLOOD UREA NITROGEN 17 MG/DL (9-23); CALCIUM LEVEL 8.3 MG/DL (8.3-10.6); CARBON DIOXIDE LEVEL 22 MMOL/L (20-31); CHLORIDE LEVEL 110 MMOL/L (98-107); CREATININE FOR GFR 0.74 MG/DL (0.70-1.30); GLOMERULAR FILTRATION RATE > 60.0 (>49); GLUCOSE, FASTING 262 MG/DL (74-106); POTASSIUM SERUM 4.1 MMOL/L (3.5-5.1); SODIUM LEVEL 140 MMOL/L (136-145)
[2023-04-19] MEDS: OMEPRAZOLE 20MG CAP PO SCH (08:01)
[2023-04-19] MEDS: LEVEMIR (INSULIN DETEMIR) 1 UNITS/0.01ML SC SCH (08:02)
[2023-04-19 10:00] VITALS: BP 160/85; TEMP 98.2; O2SAT 94
[2023-04-19 10:04] LABS: HEMOGLOBIN A1c 8.5 % (4.0-6.0)
[2023-04-19] MEDS: TIOTROPIUM INHALER/CAPSULE (SPIRIVA) INH SCH (11:25)
[2023-04-19] MEDS: FUROSEMIDE 20 MG TAB PO SCH (11:54)
[2023-04-19 12:09] VITALS: BP 160/88
[2023-04-19 13:45] VITALS: BP 150/70; TEMP 97; O2SAT 95
[2023-04-19] MEDS: REMDESIVIR 100 MG in NS 250 ML IV SCH (17:58)
[2023-04-19 20:44] VITALS: BP 150/62; TEMP 98.1; O2SAT 93
[2023-04-20] VITALS: BP 158/82; TEMP 99.1; O2SAT 92
[2023-04-20 06:00] LABS: BASO % 0.3 % (0.0-1.0); EOS # 0.3 10^3/uL (0.0-0.5); HEMATOCRIT 38.9 % (42.0-52.0); LYMPH # 1.2 10^3/uL (1.5-5.0); LYMPH % 16.1 % (24.0-44.0); MEAN CORPUSCULAR HEMOGLOBIN 29.5 pg (27.0-33.0); MEAN CORPUSCULAR HGB CONC 33.4 g/dl (32.0-36.5); MEAN CORPUSCULAR VOLUME 88.2 fl (80.0-96.0); MONO # 0.9 10^3/uL (0.0-0.8); MONO % 12.1 % (2.0-8.0); NEUTROPHILS # 4.9 10^3/uL (1.5-8.5); NEUTROPHILS % 66.7 % (36.0-66.0); PLATELET COUNT, AUTOMATED 153 10^3/uL (150-450); RED BLOOD COUNT 4.41 10^6/uL (4.30-6.10); WHITE BLOOD COUNT 7.3 10^3/uL (4.0-10.0)
[2023-04-20 06:25] LABS: BLOOD UREA NITROGEN 20 MG/DL (9-23); CARBON DIOXIDE LEVEL 25 MMOL/L (20-31); CHLORIDE LEVEL 109 MMOL/L (98-107); CREATININE FOR GFR 0.82 MG/DL (0.70-1.30); GLOMERULAR FILTRATION RATE > 60.0 (>49); GLUCOSE, FASTING 222 MG/DL (74-106); POTASSIUM SERUM 3.5 MMOL/L (3.5-5.1); SODIUM LEVEL 140 MMOL/L (136-145)
[2023-04-20 06:30] VITALS: BP 156/81; TEMP 100.6; O2SAT 95
[2023-04-20 07:56] VITALS: BP 162/82
[2023-04-20] MEDS: **hydrALAZINE HCL** 25 MG TAB PO PRN (07:56)
[2023-04-20 08:12] LABS: ALBUMIN 3.2 G/DL (3.2-5.2); ALKALINE PHOSPHATASE 47 U/L (46-116); ALT/SGPT 57 U/L (7.0-40); AST/SGOT 54 U/L (<34); BILIRUBIN,DIRECT 0.2 MG/DL (<0.4); BILIRUBIN,TOTAL 0.4 MG/DL (0.3-1.2); TOTAL PROTEIN 5.9 G/DL (5.7-8.2)
[2023-04-20 11:29] VITALS: BP 155/80; TEMP 99.1; O2SAT 95
== END 2023-04-20 13:15 | disposition home or self-care (01) ==
LOC: EDBD 09:03 → M ED 09:03 → M ED INP 09:04 → ENRESERV 16:20 → M MSPAV 17:48
PROVIDERS: ADMIT Internal Medicine; ATTEND Internal Medicine
DX: U07.1 COVID-19 (principal); J40 Bronchitis, not specified as acute or chronic; E87.20 Acidosis, unspecified; R74.01 Elevation of levels of liver transaminase levels; R06.03 Acute respiratory distress; J44.9 Chronic obstructive pulmonary disease, unspecified; I10 Essential (primary) hypertension; E11.9 Type 2 diabetes mellitus without complications; K21.9 Gastro-esophageal reflux disease without esophagitis; E78.5 Hyperlipidemia, unspecified; R60.0 Localized edema; I87.2 Venous insufficiency (chronic) (peripheral); G47.33 Obstructive sleep apnea (adult) (pediatric); F32.A Depression, unspecified; Z90.49 Acquired absence of other specified parts of digestive tract; Z94.5 Skin transplant status; Z82.49 Family history of ischemic heart disease and other diseases of the circulatory system; Z83.3 Family history of diabetes mellitus; Z79.899 Other long term (current) drug therapy; Z79.84 Long term (current) use of oral hypoglycemic drugs
CPT/HCPCS: 36415; 36600; 71045; 71275; 80048; 80053; 80076; 82550; 82553; 82803; 83036; 83605; 83880; 84145; 84484; 85025; 85027; 85610; 87040; 87486; 87581; 87633; 87798; 93005; 93041; 94640; 94660; 94760; 96361; 96365; 96367; 96372; 96376; 99285; G0378; J0248; J0696; J1650; J1815; Q9967

== ENCOUNTER → 2025-02-02 | Outpatient (CLI) | payer OTHER ==
[~2025-02-02] MED LIST changes: +AMLO1TAB24 PO; +FLUO-290 PO; -FLUO10CA18 PO; -FOLI0.8T3 PO; +FOLI800T5 PO; -PRAV40TA2 PO; +PRAV40TA85 PO; -PRAV80TA2 PO; +PRAV80TA75 PO; -PROZ20CA11 PO; +PROZ20CA25 PO
== END ==
LOC: M PLAIMG 14:26
PROVIDERS: ATTEND Nurse Practitioner Family
DX: M54.16 Radiculopathy, lumbar region (principal); M51.360 Other intervertebral disc degeneration, lumbar region with discogenic back pain only